=== PATIENT | male | born 1975 | race Caucasian/White ===

== ENCOUNTER 2016-08-03 14:47 | Inpatient (IN) | payer OTHER ==
[~2016-08-03] VITALS: Ht 188 cm; Wt 142.9 kg
[2016-08-03] VITALS (8 sets, daily range): BP systolic 134–145; BP diastolic 60–88
[~2016-08-03 14:47] MED LIST: DEXTROAMP-AMPHE20 MG PO; LASIX40 M1 PO; POTASSIUM CHLO20 ME2 PO; SUBOXONE 8 MG-1 EACH SL; ZOLPIDEM TARTRAT5 M1 PO
--- NOTE | 2016-08-03 15:18 | ED CARDIAC/CP/PALPITATIONS ---
History of Present Illness General Chief Complaint: Chest Pain Stated Complaint: PER , "I THINK HE IS HAVING A HEART ATTACK" Source: patient, family, old records Exam Limitations: intoxication Vital Signs & Intake/Output Vital Signs & Intake/Output Vital Signs Date Time Temp Pulse Resp B/P Pulse O2 O2 Flow FiO2 Ox Delivery Rate 08/03 2328 97.8 100 20 140/80 08/03 2309 97.8 100 20 140/80 94 Room Air 08/03 2113 97.1 107 18 137/60 08/03 2113 97.2 107 18 137/60 94 Room Air Room Air 08/03 2000 97.0 107 18 145/70 08/03 2000 97.0 107 18 145/70 96 Room Air Room Air 08/03 184 97.1 97 18 144/80 08/03 1749 97.0 97 18 138/70 98 Room Air 08/03 1746 97.0 97 18 138/70 08/03 1607 97.0 92 18 134/76 08/03 1458 96.0 103 18 144/73 97 Room Air Allergies Coded Allergies: NO KNOWN ALLERGIES (06/11/16) Reconcile Medications No Known Home Medications Triage Note: PT BROUGHT TO ED BY , PT WITH TEARS IN HIS EYES STATES HE THINKS HE IS HAVING A HEART ATTACK. PT BROUGHT TO EKG [facility]. EKG COMPLETED AND SHOWN TO DR. ZAMBRANO. PT BROUGHT TO ROOM 8. PT ADMITS TO ETOH AND STATES HIS LAST DRINK 2 HOURS AGO. Triage Nurses Notes Reviewed? yes Onset: Abrupt Duration: better Timing: single episode today Quality/Severity: moderate Location: substernal, central Radiation: no radiation HPI: Patient is a 40-year-old male with a past medical history significant for alcoholism who presents to the emergency room saying that the past few weeks he has been significantly drinking all the time in which his last alcohol beverage was prior to arrival which he states he woke up this morning drank vodka all morning and states that he returned from running and an one hour prior to arrival patient at home while at rest had acute onset of diaphoresis and dizziness generalized weakness heart pounding sensation in which his also noted patient to be pale in complexion. Patient denies any chest pain, fevers arm pain and jaw pain leg swelling hemoptysis history of DVT or PE. Patient denies any illicit drug use and does smoke tobacco. Patient's was recently admitted to a facility in [place] in the fall of last year in which he suffered withdrawal alcohol seizures Patient states that currently he has significant improvement of symptoms and just feels generalized weakness and fatigue. Denies any suicidal or Homicidal ideation Patient does request alcohol detoxification treatment (LISA GREGORY) Past History Travel History Traveled to [place] past 21 day No Medical History Any Pertinent Medical History? see below for history Neurological: narcolepsy EENT: NONE Cardiovascular: NONE Respiratory: NONE Gastrointestinal: NONE Hepatic: NONE Renal: NONE Musculoskeletal: NONE Psychiatric: alcohol dependence, adhd Endocrine: NONE Blood Disorders: NONE Cancer(s): NONE PEDICURIST/Reproductive: NONE Surgical History Surgical History: non-contributory, N Psychosocial History Who do you live with Significant Other What is your primary language Palauan Tobacco Use: Current Daily Use Daily Tobacco Use Amount/Type: => 5 Cigarettes daily ETOH Use: alcoholic Illicit Drug Use: denies illicit drug use Family History Hx Contributory? No (LISA GREGORY) Review of Systems Review of Systems Constitutional: Reports: see HPI, diaphoresis. EENTM: Reports: no symptoms. Respiratory: Reports: see HPI. Cardiovascular: Reports: see HPI, palpitations. Denies: chest pain. GI: Reports: no symptoms. Genitourinary: Reports: no symptoms. Musculoskeletal: Reports: no symptoms. Skin: Reports: no symptoms. Neurological/Psychological: Reports: no symptoms. Hematologic/Endocrine: Reports: no symptoms. Immunologic/Allergic: Reports: no symptoms. All Other Systems: Reviewed and Negative (LISA GREGORY) Physical Exam Physical Exam General Appearance: no apparent distress, comfortable Cardiovascular: tachycardia Comments: HEENT: Normal EENT exam, extraocular motion intact, no nystagmus. Pupils equally round and reactive to light and accommodation. Nose is atraumatic. External auditory canal and Tympanic membranes clear. Pharynx normal. No swelling or edema. Neck: Supple, no lymphadenopathy, normal range of motion without pain or tenderness Back: Nontender, no CVA tenderness. Respiratory: Chest nontender. No respiratory distress.breath sounds clear to auscultation bilaterally Abdomen: Soft, nontender nondistended, no appreciable organomegaly. Normal bowel sounds. No ascites Extremity: No edema, no calf tenderness to palpation, normal and equal pulses. Neuro: Alert oriented x3, motor sensory normal, cranial nerves II through XII grossly intact. Skin: No appreciable rash on exposed skin, skin is warm and dry. Psych: Mood and affect is normal, memory and judgment is normal. Core Measures ACS in differential dx? Yes Severe Sepsis Present: No Septic Shock Present: No (JEMIMA HICKMAN,LISA) Progress Differential Diagnosis: AMI, aortic dissection, atrial fibrillation, cholecystitis, CHF/pulm edema, costochondritis, hyperkalemia, hypovolemia, hyperthyroid, hyperventilation, intracranial hemorrhage, musculoskeletal pain, myocarditis, pancreatitis, pericarditis, pneumonia, pneumothorax, PSVT, pulmonary embolism, PUD/GERD, PVCs/PACs, respiratory failure, rib fracture, sepsis, unstable angina, V-fib/V-Tach, WPW syndrome, ELECTROLYTE ABNORMALITY, ALCOHOLISM, PANCREATITIS, Plan of Care: Orders Procedure Date/time Status Regular Diet 08/04 B Active HEPATIC FUNCTION PANEL 08/04 0600 Active BASIC ELECTROLYTES PLUS BUN&CR 08/04 0600 Active TROPONIN LEVEL 08/04 0100 Active EKG 08/04 0100 Active Pathway - chart 08/03 2246 Active House Staff 08/03 2246 Active Patient Data 08/03 2246 Active Code Status 08/03 2247 Active Vital Signs 08/03 2229 Active Teach/Educate 08/03 2229 Active Nutritional Intake, Monitor 08/03 2229 Active Isolation 08/03 2229 Active Intake & Output 08/03 2229 Active Patient Care Conference 08/03 2229 Active Activity/Ambulation 08/03 2229 Active Patient Data 08/03 2014 Active Pathway - chart 08/03 2006 Active Admit to inpatient 08/03 1956 Active Vital Signs 08/03 1956 Active Code Status 08/03 1956 Complete Intake & Output 08/03 1841 Active MAGNESIUM 08/03 1838 Complete URINE DRUGS OF ABUSE 08/03 1533 Complete URINALYSIS 08/03 1533 Complete Telemetry/Pourer Metal 08/03 1530 Active CIWA 08/03 1530 Active Add-on Test (ER Only) 08/03 1520 Active TROPONIN LEVEL 08/03 1511 Complete LIPASE 08/03 1511 Complete COMPREHENSIVE METABOLIC PANEL 08/03 1511 Complete CBC WITHOUT DIFFERENTIAL 08/03 1511 Complete AMYLASE 08/03 1511 Complete EKG 08/03 1448 Active ETHANOL 08/03 1312 Complete Lab Add-on Test 08/03 UNK Active VTE Mechanical Prophylaxis 08/03 UNK Active Seizure Precautions 08/03 UNK Active SOCIAL WORK CONSULT 08/03 UNK Active Current Medications Sig/Teddy Start time Last Medication Dose Stop Time Status Admin Enoxaparin Sodium 40 MG DAILY 08/04 1000 AC (Lovenox) Folic Acid 1 MG DAILY 08/04 1000 AC (Folic Acid) Multivitamins 1 TAB DAILY 08/04 1000 AC (Theragran Vitamins) Thiamine HCl 100 MG DAILY 08/04 1000 AC (Vitamin B1) Lorazepam 1.5 MG Q6H 08/04 0000 CAN (Ativan) 08/04 1201 Lorazepam 2 MG Q6 08/03 2359 AC (Ativan) Acetaminophen 650 MG Q8P PRN 08/03 2300 AC (Tylenol) Laboratory Tests 08/03/168: Serum Alcohol 224.0 08/03/161837: Anion Gap 20 H, Estimated GFR > 60, BUN/Creatinine Ratio 14.4, Glucose 93, Calcium 8.4, Magnesium 1.7, Total Bilirubin 1.1, AST 149 H, ALT 230 H, Alkaline Phosphatase 76, Troponin I 0.01, Total Protein 6.9, Albumin 4.1, Globulin 2.8, Albumin/Globulin Ratio 1.5, Amylase 53, Lipase 98, Urine Opiates Screen < 100.00, Methadone Screen < 40, Barbiturate Screen < 60, Ur Phencyclidine Scrn < 6.00, Amphetamines Screen < 100, U Benzodiazepines Scrn < 85, Urine Cocaine Screen < 50, Urine Cannabis Screen 13.30, Urine Color YEL, Urine Clarity CLEAR, Urine pH 6.0, Ur Specific [place] >= 1.030, Urine Protein NEG, Urine Ketones >=80, Urine Nitrite NEG, Urine Bilirubin NEG, Urine Urobilinogen 0.2, Ur Leukocyte Esterase NEG, Ur Microscopic EXAM NOT REQUIRED, Urine Hemoglobin NEG, Urine Glucose NEG 08/03/16 1312: CBC w Diff NO MAN DIFF REQ, RBC 5.31, MCV 92.0, MCH 31.5 H, RDW 15.7 H, MPV 8.4, Gran % 57.4, Lymphocytes % 35.2, Monocytes % 6.0, Eosinophils % 1.0, Basophils % 0.4, Absolute Granulocytes 3.8, Absolute Lymphocytes 2.3, Absolute Monocytes 0.4, Absolute Eosinophils 0.1, Absolute Basophils 0, PUBS MCHC 34.3 Patient currently is in no apparent distress and denies any chest pain and states that he has mild nausea and weakness and fatigue. Patient had unremarkable EKG and initial blood work for cardiac involvement of his presenting complaints. Nursing staff does note that patient scored a CIWA OF 10 Patient was evaluated on multiple occasions noted to be no apparent distress. Nursing does note to me that patient's blood work was hemolyzed multiple occasions however after approximate 4-5 hours it was noted the patient had ETOH level of 224 and patient scored a 10 on CIWA in which due to hospital protocol in which she had a seizure within the last year from alcohol withdrawal that he meets criteria to be admitted for concerns of alcohol withdrawal and treatment. I discussed disposition plan with patient and family who agree and had no questions (LISA GREGORY) Diagnostic Imaging: Viewed by Me: Radiology Read. CXR Impression: no acute abnormality Initial ED EKG: SINUS TACHYCARDIA 101 BPM SINUS RHYTHM Prior EKG: unchanged Comments: PATIENT: CHLOE MCFADDEN PRESENT AGE: 40 PATIENT ACCOUNT NO: [id number] : 74 LOCATION: [facility] ORDERING PHYSICIAN: LISA HICKMAN SERVICE DATE: 08/03/16 EXAM TYPE: RAD - XRY-PORTABLE CHEST XRAY EXAMINATION: XR PORTABLE CHEST CLINICAL INFORMATION: Chest pain. COMPARISON: X-ray dated 06/11/2016 and 02/14/2013. TECHNIQUE: Portable AP semierect view of the chest was obtained. FINDINGS: The cardiomediastinal silhouette is within normal limits in size. Lungs bilaterally are symmetrically expanded and clear. The CP angles are not fully included. No effusion or pneumothorax is seen. Bony structures are unremarkable. IMPRESSION: Unchanged appearance of the chest with no acute focal process seen. (LISA GREGORY) Departure Departure Disposition: STILL A PATIENT Condition: Guarded Clinical Impression Primary Impression: Alcohol dependence Referrals: BONNIE CARRILLO,SONNY Heredia (PCP/Family) Departure Forms: Customer Survey General Discharge Information Prescriptions: Current Visit Scripts No Known Home Medications Admission Note Spoke With: LEXY SINGH MD Documentation of Exam: Documentation of any treatments & extenuating circumstances including Concerns Regarding Discharge (functional status, medication knowledge or non-compliance, living conditions, etc.) that warrant an admission rather than observation: [ Discussed patient with Dr. SINGH who agrees with general medicine admission for concerns of alcohol dependency and alcohol withdrawal symptoms. Patient requires IV Ativan tapering repeat labs and counseling services for his dependency. Outpatient treatment at this time would be medically harmful] (LISA GREGORY) PA/FOREIGN AGENT Co-Sign Statement Statement: ED Attending supervision documentation- [] I saw and evaluated the patient. I have also reviewed all the pertinent lab results and diagnostic results. I agree with the findings and the plan of care as documented in the PA's/FOREIGN AGENT's documentation. [X] I have reviewed the ED Record and agree with the PA's/FOREIGN AGENT's documentation. [] Additions or exceptions (if any) to the PAs/FOREIGN AGENT's note and plan are summarized below: [] (MARNIE CARRILLO,NADINE) Critical Care Note Critical Care Note Critical Care Time: 30-74 min (LISA GREGORY)
[2016-08-03 15:19] LABS: ABSOLUTE BASOPHIL COUNT 0 /CUMM (0.0-0.2); ABSOLUTE EOSINOPHIL COUNT 0.1 /CUMM (0.0-0.7); ABSOLUTE GRANULOCYTE CT 3.8 /CUMM (1.4-6.5); ABSOLUTE LYMPH COUNT 2.3 /CUMM (1.2-3.4); ABSOLUTE MONOCYTE COUNT 0.4 /CUMM (0.10-0.60); BASOPHIL % 0.4 % (0.0-2.0); GRANULOCYTE % 57.4 % (42.2-75.2); HEMATOCRIT 48.8 % (42-52); MEAN CORPUSCULAR HGB 31.5 PG (27.0-31.0); MEAN CORPUSCULAR HGB CONC 34.3 G/DL (33.0-37.0); MEAN PLATELET VOLUME 8.4 FL (7.4-10.4); PLATELET COUNT 231 /CUMM (130-400); RBC DISTRIBUTION WIDTH 15.7 % (11.5-14.5); RED BLOOD CELL CT 5.31 /CUMM (4.70-6.10); WHITE BLOOD CELL COUNT 6.6 /CUMM (4.8-10.8)
--- NOTE | 2016-08-03 16:04 | RADIOLOGY REPORT ---
EXAMINATION: XR PORTABLE CHEST CLINICAL INFORMATION: Chest pain. COMPARISON: X-ray dated 06/11/2016 and 02/14/2013. TECHNIQUE: Portable AP semierect view of the chest was obtained. FINDINGS: The cardiomediastinal silhouette is within normal limits in size. Lungs bilaterally are symmetrically expanded and clear. The CP angles are not fully included. No effusion or pneumothorax is seen. Bony structures are unremarkable. IMPRESSION: Unchanged appearance of the chest with no acute focal process seen.
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
--- NOTE | 2016-08-03 23:15 | Admission Certification ---
Admission Certification Certification Statement - As attending physician, I certify that at the time of - admission, based on clinical presentation, severity of - symptoms, need for further diagnostic testing and - therapeutic interventions, and risk of adverse outcomes - without in-hospital treatment, in my clinical assessment, - this patient requires an acute hospital stay for a minimum - of two nights or longer. I have also considered psychsocial - factors such as support system, advanced age, financial - issues, cognitive issues, and failed out-patient treatments, - past re-admission history, safety of patient, and lack of - compliance as applicable. Specific rationale supporting this admission is: Alcohol withdrawal with h/o alcohol withdrawal seizure.
[2016-08-04] VITALS (12 sets, daily range): BP systolic 138–170; BP diastolic 80–110
--- NOTE | 2016-08-04 07:39 | PN- Housestaff ---
SHANTAL CARRILLO,OLY 08/04/16 0738: Subjective Follow-up For: ETOH withdrawal Complaints: nausea/abdominal discomfort Subjective: He c/o nausea and abdominal discomfort. Last drink was 1 DA. His hands were shaking a lot last night, but today morning he got better. He didn't have hx of HTN. Not on any home medication. Review of Systems Constitutional: Reports: malaise. Denies: chills, fever, weakness. EENTM: Reports: no symptoms. Cardiovascular: Denies: chest pain, orthopena, palpitations, peripheral edema, syncope. Respiratory: Denies: cough, short of breath, sputum production. Gastrointestinal: Reports: abdominal pain, nausea. Denies: diarrhea, vomiting. Genitourinary: Reports: no symptoms. Musculoskeletal: Reports: no symptoms. Skin: Reports: no symptoms. Neurological/Psychological: Reports: anxiety. Hematologic/Endocrine: Reports: no symptoms. Objective Last 24 Hrs of Vital Signs/I&O Vital Signs Date Time Temp Pulse Resp B/P Pulse O2 O2 Flow FiO2 Ox Delivery Rate 08/04 0800 98.8 83 18 168/110 08/04 0657 98.7 105 18 144/106 94 Room Air 08/04 0550 98.7 94 20 144/106 08/04 0000 97.8 100 20 140/80 08/03 2329 97.8 100 20 140/80 08/03 2309 97.8 100 20 140/80 94 Room Air 08/034 97.1 107 18 137/60 08/03 2114 97.2 107 18 137/60 94 Room Air Room Air 08/03 2000 97.0 107 18 145/70 08/03 2000 97.0 107 18 145/70 96 Room Air Room Air 08/03 1845 97.1 97 18 144/80 08/03 1749 97.0 97 18 138/70 98 Room Air 08/03 1746 97.0 97 18 138/70 08/03 1607 97.0 92 18 134/76 08/03 1458 96.0 103 18 144/73 97 Room Air Intake & Output 08/04 1600 08/04 0800 08/04 0000 Intake Total 240 1150 Output Total Balance 240 1150 Intake, IV 1000 Intake, Oral 240 150 Number 0 Bowel Movements Patient 315 lb Weight Physical Exam General Appearance: Alert, Oriented X3, Mild Distress Skin: No Rashes, No Breakdown, No Significant Lesion HEENT: Atraumatic, PERRLA, EOMI, Mucous Membr. moist/pink Neck: Supple, No JVD, No LAD Lymphatic: Cervical nl Cardiovascular: Normal S1, Normal S2, No Murmurs, tachycardic Lungs: Clear to Auscultation, Normal Air Movement Abdomen: Normal Bowel Sounds, Soft, No Tenderness Neurological: Normal Speech, Strength at 5/5 X4 Ext, Normal Tone, Sensation Intact, fine bilateral hand tremors Extremities: No Edema, Normal Pulses, No Tenderness/Swelling Vascular: Normal Pulses, Pulses Symmetrical Current Medications: Current Medications Sig/Teddy Start time Last Medication Dose Route Stop Time Status Admin Acetaminophen 650 MG Q8P PRN 08/03 2300 AC PO Benzonatate 100 MG TID 08/04 0521 AC 08/04 PO 0545 Clonidine 0.1 MG BID 08/04 1000 AC PO Enoxaparin Sodium 40 MG DAILY 08/04 1000 AC SC Folic Acid 1 MG DAILY 08/04 1000 AC PO Lorazepam 1.5 MG Q6H 08/04 0000 CAN IV 08/04 1201 Lorazepam 2 MG Q6 08/03 2359 AC 08/04 PO 0517 Lorazepam 0 Q1P PRN 08/03 2300 AC 08/04 IV 0813 Lorazepam 2 MG ONCE 08/03 2014 DC IV 08/03 2015 Lorazepam 0 .STK-MED ONE 08/03 2012 DC .ROUTE Lorazepam 2 MG Q6 08/03 2006 DC 08/03 IV 2019 Magnesium Oxide 400 MG ONE ONE 08/04 0030 DC 08/04 PO 08/04 0031 0215 Multivitamins 1 TAB DAILY 08/04 1000 AC PO Nicotine 14 MG DAILY 08/04 1000 AC TOP Ondansetron HCl 4 MG Q6P PRN 08/04 0845 AC IV Ondansetron HCl 4 MG ONCE ONE 08/03 2130 DC 08/03 IV 08/03 2131 2124 Ondansetron HCl 0 .STK-MED ONE 08/03 2016 DC .ROUTE Ondansetron HCl 4 MG ONCE ONE 08/03 1530 DC IV 08/03 1531 Sodium Chloride 1,000 ML BOLUS ONE 08/03 1530 DC 08/03 IV 08/03 1629 1629 Thiamine HCl 100 MG DAILY 08/04 1000 AC PO Last 24 Hrs of Lab/Devendra Results Last 24 Hrs of Labs/Mics: Laboratory Tests 08/04/16 0630: Anion Gap 9, Estimated GFR > 60, BUN/Creatinine Ratio 15.6, Magnesium 2.0, Total Bilirubin 1.6 H, Direct Bilirubin 0.4, AST 107 H, ALT 187 H, Alkaline Phosphatase 70, Total Protein 6.5, Albumin 3.8, Hepatitis A IgM Ab Pending, Hep Bs Antigen Pending, Hep B Core IgM Ab Conf Pending, Hepatitis C Antibody Pending 08/04/16 0100: Troponin I < 0.01 08/03/16 1838: Serum Alcohol 224.0 08/03/161837: Anion Gap 20 H, Estimated GFR > 60, BUN/Creatinine Ratio 14.4, Glucose 93, Calcium 8.4, Magnesium 1.7, Total Bilirubin 1.1, AST 149 H, ALT 230 H, Alkaline Phosphatase 76, Troponin I 0.01, Total Protein 6.9, Albumin 4.1, Globulin 2.8, Albumin/Globulin Ratio 1.5, Amylase 53, Lipase 98, Urine Opiates Screen < 100.00, Methadone Screen < 40, Barbiturate Screen < 60, Ur Phencyclidine Scrn < 6.00, Amphetamines Screen < 100, U Benzodiazepines Scrn < 85, Urine Cocaine Screen < 50, Urine Cannabis Screen 13.30, Urine Color YEL, Urine Clarity CLEAR, Urine pH 6.0, Ur Specific [place] >= 1.030, Urine Protein NEG, Urine Ketones >=80, Urine Nitrite NEG, Urine Bilirubin NEG, Urine Urobilinogen 0.2, Ur Leukocyte Esterase NEG, Ur Microscopic EXAM NOT REQUIRED, Urine Hemoglobin NEG, Urine Glucose NEG 08/03/16 1312: CBC w Diff NO MAN DIFF REQ, RBC 5.31, MCV 92.0, MCH 31.5 H, RDW 15.7 H, MPV 8.4, Gran % 57.4, Lymphocytes % 35.2, Monocytes % 6.0, Eosinophils % 1.0, Basophils % 0.4, Absolute Granulocytes 3.8, Absolute Lymphocytes 2.3, Absolute Monocytes 0.4, Absolute Eosinophils 0.1, Absolute Basophils 0, PUBS MCHC 34.3 Orders CIWA Score (last 24 hrs): 5-8-6-2-10-14-16 Lines/Diet/Fluids Lines: peripheral lines Assessment/Plan Assessment: 40 yo obese male with pmh of alcohol dependence, previous alcohol withdrawal seizures while he was in [facility] in [place] (Mar 2016), anxiety, narcolepsy with current smoking p/w an episode of sudden onset diaphoresis, palpitations and dyspnea with chest pain. No evidence of seizure like activity. He drinks 1/2 pint of vodka daily, last drink was 1DA, drinking since he was 12, been through multiple detoxes in the past. Denies SI or HI. Pt is admitted in for alcohol withdrawal. 1. Dyspnea/palpitations: 2 sets of troponin/ekgs were negative. He denies any ongoing chest pain. Most likely from alcohol withdrawal/anxiety. Pt is still tachycardic. Manage symptoms with po ativan ATC/IV ativan prn. 2. Alcohol withdrawal / HTN: He had 1 episode of alcohol withdrawal seizure while he was in [facility] in [place] (Mar 2016). After that no extra episode of seizure. CIWA score has been increasing from 10, 14, then 16 this morning. Also BP was elevated with tachycardia. Continue IV ativan per CIWA, PO ativan 2 mg Q6, multivitamin, folate/thiamine, IV zofran for nausea. He started on po clonidine 0.1mg bid for HTN in the setting of alchol withdrawal. will follow up Social work consult. 3. Smoking cessation: He smokes usually when he drinks. He denies heavy cigarette smoking, continue counseling, nicotine patch. 5. Narcolepsy: He has been following Dr. Sirena Wang in [place] for narcolepsy. Will get medical record. 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 Patient was on adderall which he stopped taking. He denies opioid abuse, and he states he was on suboxone for narcolepsy. He used marijuana for insomina, last use 2WA. 6. Transaminitis: AST/ALT improving. Hepatitis panel negative. Trend LFT/lipid panel in AM. DVT ppx Lovenox. Full code. Problem List: 1. Alcohol withdrawal syndrome Pain Ratin Pain Location: abdominal discomfort Pain Goal: Pain 4 or less Pain Plan: tyrenol prn Tomorrow's Labs & Rationales: LFT, lipid panel: transaminitis DVT/Prophylaxis: pharmacological Discharge Plan Stable for Discharge? No HORTENCIA BELL MD 08/04/16 0227: Attending MD Review Statement Attending Statement Attending MD Statement: examined this patient, discuss w/resident/PA/CLOTH FINISHING RANGE TENDER, agreed w/resident/PA/CLOTH FINISHING RANGE TENDER, reviewed EMR data (avail), discussed with nursing, amended to note Attending Assessment/Plan: The patient was seen and discussed with house staff. Agree with plan of care as outlined.
[2016-08-05] VITALS (9 sets, daily range): BP systolic 120–140; BP diastolic 60–90
--- NOTE | 2016-08-05 07:42 | PN- Housestaff ---
SHANTAL CARRILLO,OLY 08/05/16 0737: Subjective Follow-up For: ETOH withdrawal Complaints: pt was anxious/depressed today morning Subjective: Pt was tearful this morning c/o depression. He denies SI / HI. He was not interested in seeing a psychiatrist in the hospital, but he wants to follow up with Dr. Wang. He denies any nausea/vomiting. Review of Systems Constitutional: Denies: chills, fever, weakness. EENTM: Reports: no symptoms. Cardiovascular: Denies: chest pain, palpitations, peripheral edema, syncope. Respiratory: Denies: cough, short of breath, sputum production, wheezing. Gastrointestinal: Denies: abdominal pain, diarrhea, nausea, vomiting. Genitourinary: Reports: no symptoms. Musculoskeletal: Reports: no symptoms. Skin: Reports: no symptoms. Neurological/Psychological: Reports: anxiety, depressed. Hematologic/Endocrine: Reports: no symptoms. Objective Last 24 Hrs of Vital Signs/I&O Vital Signs Date Time Temp Pulse Resp B/P Pulse O2 O2 Flow FiO2 Ox Delivery Rate 08/05 0706 98.6 70 19 132/70 95 Room Air 08/05 0227 98.6 70 20 126/60 93 Room Air 08/05 0200 98.6 70 20 126/60 08/05 0000 95 Room Air 08/04 2227 98.9 85 18 140/82 95 Room Air 08/04 2200 98.9 85 18 140/82 95 Room Air 08/04 2124 98.9 85 18 140/82 08/04 1400 99.0 81 20 138/90 08/04 1351 99.0 81 20 138/90 96 Room Air 08/04 1200 98.1 102 18 140/86 08/04 1057 158/82 08/04 1035 98.9 105 18 158/84 97 Room Air 08/04 1000 98.9 105 18 158/84 08/04 0900 98.0 100 18 170/100 08/04 0800 98.8 83 18 168/110 Intake & Output 08/05 0800 08/05 0000 08/04 1600 Intake Total 480 750 Output Total Balance 480 750 Intake, Oral 480 750 Number 1 Bowel Movements Physical Exam General Appearance: Alert, Oriented X3, Cooperative, tearful, loos anxious/ depressed Skin: No Rashes, No Breakdown, No Significant Lesion HEENT: Atraumatic, PERRLA, EOMI, Mucous Membr. moist/pink Neck: Supple, No JVD, No LAD Lymphatic: Cervical nl Cardiovascular: Regular Rate, Normal S1, Normal S2, No Murmurs Lungs: Clear to Auscultation, Normal Air Movement Abdomen: Normal Bowel Sounds, Soft, No Tenderness Neurological: Normal Speech, Strength at 5/5 X4 Ext, Normal Tone, Sensation Intact, Cranial Nerves 3-12 NL Extremities: No Cyanosis, No Edema, Normal Pulses, No Tenderness/Swelling Vascular: Normal Pulses, Pulses Symmetrical Current Medications: Current Medications Sig/Teddy Start time Last Medication Dose Route Stop Time Status Admin Acetaminophen 650 MG Q8P PRN 08/03 2300 AC 08/04 PO 0921 Benzonatate 100 MG TID 08/04 0521 AC 08/05 PO 0942 Bupropion HCl 100 MG BID 08/05 1000 AC 08/05 PO 1110 Clonidine 0.1 MG BID 08/04 1000 AC 08/05 PO 0942 Enoxaparin Sodium 40 MG DAILY 08/04 1000 AC 08/05 SC 0942 Folic Acid 1 MG DAILY 08/04 1000 AC 08/05 PO 0942 Influenza Virus 0.5 ML ONCE ONE 08/05 1245 DC 08/05 Vaccine IM 08/05 1246 1330 Lorazepam 2 MG Q6 08/03 2359 AC 08/05 PO 1110 Lorazepam 0 Q1P PRN 08/03 2300 AC 08/05 IV 1430 Multivitamins 1 TAB DAILY 08/04 1000 AC 08/05 PO 0942 Nicotine 14 MG DAILY 08/04 1000 DC TOP Ondansetron HCl 4 MG Q6P PRN 08/04 0845 AC IV Thiamine HCl 100 MG DAILY 08/04 1000 AC 08/05 PO 0942 Last 24 Hrs of Lab/Devendra Results Last 24 Hrs of Labs/Mics: Laboratory Tests 08/05/16 0700: Anion Gap 9, Estimated GFR > 60, BUN/Creatinine Ratio 12.5, Total Bilirubin 1.9 H, Direct Bilirubin 0.3, AST 152 H, ALT 180 H, Alkaline Phosphatase 66, Total Protein 6.2 L, Albumin 3.6 Orders CIWA Score (last 24 hrs): 10-2-0-0-0 Lines/Diet/Fluids Lines: peripheral lines Assessment/Plan Assessment: 40 yo obese male with pmh of alcohol dependence, previous alcohol withdrawal seizures while he was in [facility] in [place] (Mar 2016), anxiety, narcolepsy with current smoking p/w an episode of sudden onset diaphoresis, palpitations and dyspnea with chest pain. No evidence of seizure like activity. He drinks 1/2 pint of vodka daily, last drink was 1DA, drinking since he was 12, been through multiple detoxes in the past. Denies SI or HI. Pt is admitted in for alcohol withdrawal. 1. Dyspnea/palpitations: 2 sets of troponin/ekgs were negative. He denies any ongoing chest pain. Most likely from alcohol withdrawal/anxiety. Tachycardia resolved. Manage symptoms with po ativan ATC/IV ativan prn. 2. Alcohol withdrawal / HTN: He had 1 episode of alcohol withdrawal seizure while he was in [facility] in [place] (Mar 2016). After that no extra episode of seizure. CIWA score has been stable, 10-2-0-0-0. Pt is on po 2mg q6 ( 8mg in 24 hrs) with IV ativan (5mg in 24 hrs) total 13 mg/24 hrs. Hypertension/ tachycardia resolved. Continue IV ativan per CIWA, PO ativan 2 mg Q6, multivitamin, folate/thiamine, IV zofran for nausea, po clonidine 0.1mg bid for HTN in the setting of alchol withdrawal. 3. Smoking cessation: He smokes usually when he drinks. He denies heavy cigarette smoking, continue counseling, he declined nicotine patch. 5. Narcolepsy: He has been following Dr. Sirena Wang in [place] for narcolepsy. Will get medical record. 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 Patient was on adderall which he stopped taking. He denies opioid abuse, and he states he was on suboxone for narcolepsy. He used marijuana for insomina, last use 2WA. 6. Transaminitis: AST/ALT still elevated. Hepatitis panel negative. Asymptomatic. Will follow LFT before discharge 7. Depression: He has clinical depression, wellbutrin 100mg bid was initiated today. Outpt follow up with Dr. Wang. DVT ppx Lovenox. Full code. Problem List: 1. Alcohol withdrawal syndrome Pain Ratin Pain Location: NA Pain Goal: Pain 4 or less Pain Plan: tyrenol prn Tomorrow's Labs & Rationales: NA, LFT before discharge DVT/Prophylaxis: pharmacological Discharge Plan Stable for Discharge? No HORTENCIA BELL MD 08/05/16 1417: Attending MD Review Statement Attending Statement Attending MD Statement: examined this patient, discuss w/resident/PA/GENERAL INTERNAL MEDICINE PHYSICIAN, agreed w/resident/PA/GENERAL INTERNAL MEDICINE PHYSICIAN, reviewed EMR data (avail), discussed with nursing, reviewed images Attending Assessment/Plan: The patient was seen and discussed with house staff. Agree with the plan of care as outlined.
--- NOTE | 2016-08-05 21:40 | Patient Discharge Instructions ---
Discharge Instructions General Discharge Information You were seen/treated for: ETOH withdrawl Special Instructions: 1. please followup with your regular doctor after discharge Diet Continue normal diet: Yes Activity Full Activity/No Limits: Yes Acute Coronary Syndrome Inclusion Criteria At DC or during hospital stay patient has or had the following: ACS DIAGNOSIS No Discharge Core Measures Meds if any: Prescribed or Continued at Discharge Meds if any: NOT Prescribed or Continued at Discharge Congestive Heart Failure Inclusion Criteria At DC or during hospital stay patient has or had the following: CHF DIAGNOSIS No Discharge Core Measures Meds if any: Prescribed or Continued at Discharge Meds if any: NOT Prescribed or Continued at Discharge Cerebrovascular accident Inclusion Criteria At DC or during hospital stay patient has or had the following: CVA/TIA Diagnosis No Discharge Core Measures Meds if any: Prescribed or Continued at Discharge Meds if any: NOT Prescribed or Continued at Discharge Venous thromboembolism Inclusion Criteria VTE Diagnosis No VTE Type NONE VTE Confirmed by (Test) NONE Discharge Core Measures - Per Current guidelines, there needs to be overlap - treatment for the first 5 days of Warfarin therapy. - If discharged on Warfarin prior to 5 days of - overlap therapy, the patient will need to be - assessed for post discharge needs including - *Post discharge parental anticoagulation - *Warfarin and/or parental anticoagulation education - *Follow up date to check INR post discharge At least 5 days overlap therapy as Inpatient No Meds if any: Prescribed or Continued at Discharge Note: Overlap Therapy is Warfarin and Anticoagulant Meds if any: NOT Prescribed or Continued at Discharge
--- NOTE | 2016-08-05 21:41 | Event Note ---
Event Note Event Note: I was told by the nurse, that patient want to leave AMA. I went to talk to the patient, he was very worried about his .We told him that he needs to finish alcohol detox and his CIWA scores are running high. He can have seizures, aspiration,difficulty in breathing, even cardiac arrest and end up in readmission. Patient was aware of all consequences. At the time of leaving AMA, he does not have any suicidal or homicidal ideation. I updated to Dr. Nielsen, she came and tried to make understand the patient about the pros and cons of leaving AMA including seizures and cardiac arrest. Despite all efforts patient wanted to leave AMA. He signed AMA form. Patient was discharged without any medication, but later we find out that he was started on Wellbutrin and clonidine in hospital.We send the prescription to pharmacy for both welbutrin and clonidine.Resident talked to the over phone, updated about patient that he is leaving AMA and we send prescriptions for Wellbutrin and clonidine to pharmacy. She told that she will pick it up from the pharmacy tomorrow.Attending Aware.
--- NOTE | 2016-08-14 16:29 | Discharge Summary ---
Visit Information Visit Dates Admission Date: 08/03/16 Discharge Date: 08/05/16 Hospital Course Course Attending Physician: HORTENCIA BELL MD Primary Care Physician: BONNIE CARRILLO,SONNY Heredia Hospital Course: 40 yo obese male with pmh of alcohol dependence, previous alcohol withdrawal seizures while he was in [facility] in [place] (Mar 2016), anxiety, narcolepsy with current smoking presented with an episode of sudden onset diaphoresis, palpitations and dyspnea with chest pain. No evidence of seizure like activity. He drinks 1/2 pint of vodka daily. Last drink was 1DA. He has been drinking since he was age of 12 and he got multiple detoxes in the past. He denied suicidal or homocidal idea. Patient was admitted in for alcohol withdrawal. 1. Dyspnea/palpitations: 2 sets of troponin/ekgs were negative. He denies any ongoing chest pain. Most likely from alcohol withdrawal/anxiety. Tachycardia was resolved later. We continued managing symptoms with po ativan ATC/IV ativan prn. 2. Alcohol withdrawal : Patient was given po ativan 2mg q6 around the clock and IV ativan per CIWA protocol. CIWA score has been stable during admission. Hypertension and tachycardia were resolved. He continued multivitamin, folate/ thiamine, IV zofran for nausea, po clonidine 0.1mg bid for HTN in the setting of alchol withdrawal. However, before finishing the course of ativan taper, patient discharged against medical advice on 08/05. He got explanation from night float doctors about risk of seizures, aspiration, difficulty in breathing, cardiac arrest and readmission. Please follow up with Dr. Wang, psychiatry as outpatient. 3. Current smoker: He smokes usually when he drinks. He denies heavy cigarette smoking. Smoking cessation counseling was given, but he declined nicotine patch. 5. Narcolepsy: He has been following Dr. Sirena Wang in [place] for narcolepsy. Will get medical record. 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 Patient was on adderall which he stopped taking. He denies opioid abuse, and he states he was on suboxone for narcolepsy. He used marijuana for insomina, last use 2WA. 6. Transaminitis: AST/ALT were elevated 152/180. Atypical pattern for alcoholic hepatitis (AST < ALT). Hepatitis A/B/C panel was negative. Patient was asymptomatic. Please follow up LFT with a primary doctor. 7. Depression: He has clinical depression with tearfulness. PO wellbutrin 100mg bid was initiated. However, as patient left AMA, po wellbutrin was not given as discharge medication per [facility] recommendation. Please follow up with Dr. Wang as outpt. DVT ppx Lovenox. Full code. Allergies: Coded Allergies: NO KNOWN ALLERGIES (06/11/16) Disposition Summary Disposition Principal Diagnosis: Alcohol withdrawal syndrome Additional Diagnosis: Narcolepsy Depression Transaminitis Current smoker Discharge Disposition: left against medical adv Discharge Instructions General Discharge Information Code Status: Full Code Patient's Diet: Heart healthy diet Patient's Activity: Increase as tolerated Follow-Up Instructions/Appts: Please follow up with primary doctor within 1 week after discharge Please follow up with Dr. Wang for psychiatric disorders. Medications at Discharge Discharge Medications: Start taking the following new medications: Bupropion HCl (Bupropion HCl) 100 MG TABLET 1 Tablet ORAL TWICE DAILY Qty = 60 No Refills Clonidine HCl (Clonidine HCl) 0.1 MG TABLET 1 Tablet ORAL TWICE DAILY Qty = 60 No Refills Copies To: HORTENCIA BELL MD; BONNIE CARRILLO,SONNY Heredia; SIDNEY CARRILLO,SIRENA BAGLEY Attending MD Review Statement Documenting Attending: HORTENCIA BELL MD Other Findings: The patient was seen and agree with the plan of care upon discharge.
== END 2016-08-05 21:45 | disposition left against medical advice (07) | DRG 894 ==
LOC: ERH 14:47 → ERHI 19:56 → 2NA 19:56
PROVIDERS: Internal Medicine; Physician Assistant; ADMIT Student in an Organized Health Care Education/Training Program
DX: F10.239 Alcohol dependence with withdrawal, unspecified (principal); F32.9 Major depressive disorder, single episode, unspecified; Y90.7 Blood alcohol level of 200-239 mg/100 ml; F17.210 Nicotine dependence, cigarettes, uncomplicated; G47.419 Narcolepsy without cataplexy
CPT/HCPCS: 2NASP; 36415; 80307; 81003; 82436; 93005; 93010; 96374; G0480; J1650; J2405; J3490; Q2036

== ENCOUNTER 2016-08-18 15:38 | Inpatient (IN) | payer OTHER ==
[~2016-08-18] VITALS: Ht 188 cm; Wt 140.6 kg
--- NOTE | 2016-08-18 15:45 | NUR ---
PT BIBA FROM HOME FOR ETOH USE. PT REPORTS DRINKING 1/2 GALLON OF VODKA FROM LAST NIGHT UNTIL THIS AFTERNOON. PT REPORTS THAT HE HAD A SEIZURE A FEW MONTHS AGO WHEN HE WAS AT A 45 DAY REHAB IN [place]. PT REPORTS HE WAS RECENTLY DIAGNOSED WITH DIABETES. PT DENIES SI/HI OR ANY OTHER DRUGS.
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
--- NOTE | 2016-08-18 16:29 | NUR ---
LABS DRAWN AND SENT
[2016-08-18 16:30] VITALS: BP 118/58
[2016-08-18 16:46] LABS: ABSOLUTE BASOPHIL COUNT 0 /CUMM (0.0-0.2); ABSOLUTE EOSINOPHIL COUNT 0 /CUMM (0.0-0.7); ABSOLUTE GRANULOCYTE CT 5.5 /CUMM (1.4-6.5); ABSOLUTE LYMPH COUNT 1.2 /CUMM (1.2-3.4); ABSOLUTE MONOCYTE COUNT 0.2 /CUMM (0.10-0.60); BASOPHIL % 0.4 % (0.0-2.0); EOSINOPHIL % 0.6 % (0-5); GRANULOCYTE % 78.3 % (42.2-75.2); HEMATOCRIT 53.5 % (42-52); MEAN CORPUSCULAR HGB 32.1 PG (27.0-31.0); MEAN CORPUSCULAR HGB CONC 34.2 G/DL (33.0-37.0); MEAN CORPUSCULAR VOLUME 93.9 FL (80.0-94.0); MEAN PLATELET VOLUME 8.8 FL (7.4-10.4); PLATELET COUNT 234 /CUMM (130-400); RBC DISTRIBUTION WIDTH 15.9 % (11.5-14.5); RED BLOOD CELL CT 5.71 /CUMM (4.70-6.10); WHITE BLOOD CELL COUNT 7.1 /CUMM (4.8-10.8)
--- NOTE | 2016-08-18 17:10 | NUR ---
RN PASQUALE AT BEDSIDE TO START IV. PT'S BSG = 67. GAVE PT ORANGE JUICE X4.
--- NOTE | 2016-08-18 18:15 | NUR ---
PT ASLEEP AT THIS TIME. RESPIRATIONS EQUAL AND UNLABORED.
--- NOTE | 2016-08-18 19:06 | NUR ---
PT AWAKE FOR VITALS, PT STATES HE IS HUNGRY, BUT ALSO REPORTS DIZZINESS. PT IS CALM AND COOPERATIVE.
[2016-08-18 19:12] VITALS: BP 134/62
[2016-08-18 20:29] VITALS: BP 180/88
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
--- NOTE | 2016-08-18 21:01 | NUR ---
PT MEDICATED WITH ATIVAN 2MG PO.
--- NOTE | 2016-08-18 21:15 | NUR ---
PT AMBULATORY TO RESTROOM WITH STEADY GAIT.
--- NOTE | 2016-08-18 21:21 | NUR ---
URINE TRIO SENT TO LAB
--- NOTE | 2016-08-18 22:15 | NUR ---
PT PROVIDED WITH BOX LUNCH
--- NOTE | 2016-08-18 22:27 | NUR ---
PT'S AT BEDSIDE
[2016-08-18 22:30] VITALS: BP 151/72
--- NOTE | 2016-08-18 22:56 | NUR ---
THIS RN ASSUMED CARE OF PT PER RN ZUHAIR, PT RESTING IN RM WITH RR.
--- NOTE | 2016-08-18 23:41 | NUR ---
PT MEDICATED WITH 2MG ATIVAN IV PER EMAR FOR CIWA SCORE OF 14.
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
[2016-08-19] VITALS (13 sets, daily range): BP systolic 140–168; BP diastolic 60–120
--- NOTE | 2016-08-19 00:30 | NUR ---
HOUSE STAFF IN FOR EVAL
--- NOTE | 2016-08-19 00:56 | NUR ---
REPORT GIVEN TO SUNDEEP ROSA.
[2016-08-19] MEDS ORDERED: CLONIDINE HCL0.1 MG PO (01:17)
[2016-08-19] MEDS ORDERED: WELLBUTRIN SR100 M2 PO (01:18)
--- NOTE | 2016-08-19 02:00 | NUR ---
VSS, 0/10 PAIN REPORTED. A&Ox3, INDEPENDENT. ORIENTED TO ROOM, CALL ZAMBRANO IN REACH. AT THE BEDSIDE.
--- NOTE | 2016-08-19 02:02 | Admission Certification ---
Admission Certification Certification Statement - As attending physician, I certify that at the time of - admission, based on clinical presentation, severity of - symptoms, need for further diagnostic testing and - therapeutic interventions, and risk of adverse outcomes - without in-hospital treatment, in my clinical assessment, - this patient requires an acute hospital stay for a minimum - of two nights or longer. I have also considered psychsocial - factors such as support system, advanced age, financial - issues, cognitive issues, and failed out-patient treatments, - past re-admission history, safety of patient, and lack of - compliance as applicable. Specific rationale supporting this admission is: Alcohol detox.
--- NOTE | 2016-08-19 06:35 | PN- Housestaff ---
ALEJANDRA CARRILLO,[facility] 08/19/16 0634: Subjective Follow-up For: ETOH Withdrawal Subjective: Patient was seen and examined this morning. Reports feeling much better. Expresses desire to get help with acute alcohol withdrawal/detoxification. Patient denies any visual hallucinations, however, does report auditiory hallucinations. Patient denies any pain or discomfort. The patient denies any fever, chills, nausea or vomiting. Review of Systems Constitutional: Reports: see HPI. Objective Last 24 Hrs of Vital Signs/I&O Vital Signs Date Time Temp Pulse Resp B/P Pulse O2 O2 Flow FiO2 Ox Delivery Rate 08/19 1136 97.3 87 20 140/60 93 Room Air / 0932 86 150/100 03/ 0920 98.0 86 20 150/100 93 Room Air / 0500 98.1 99 20 158/90 95 Room Air / 0200 98.4 96 20 168/94 03/ 0141 98.4 96 20 168/94 98 Room Air 03/ 2230 98.0 100 18 151/72 03/06 2220 98.0 100 18 151/72 99 Room Air / 202 123 16 180/88 03/ 2029 123 16 180/88 98 Room Air 03/06 1913 95.0 75 14 134/62 98 Room Air 03/06 1912 95.0 75 14 134/62 03/06 1906 Room Air 03/06 1630 68 18 118/58 03/06 1602 68 18 118/58 97 Room Air Intake & Output / 1600 /07 0800 03/ 0000 Intake Total 2700 1000 Output Total Balance 2700 1000 Intake, IV 300 1000 Intake, Oral 2400 Patient 140.614 kg Weight Physical Exam General Appearance: Alert, Oriented X3, Cooperative Cardiovascular: Normal S1, Normal S2, No Murmurs Lungs: Clear to Auscultation Abdomen: Normal Bowel Sounds, Soft, No Tenderness, Distended Abdomen Neurological: Normal Speech, Normal Tone, Sensation Intact Extremities: No Clubbing, No Cyanosis, No Edema Current Medications: Current Medications Sig/Teddy Start time Last Medication Dose Route Stop Time Status Admin Bupropion HCl 100 MG BID 08/19 1000 CAN PO Clonidine 0.1 MG BID 08/19 0200 AC 08/19 PO 0932 Cyanocobalamin 1,000 MCG DAILY 08/19 1000 AC 08/19 PO 0931 Cyanocobalamin/ 1 BAG DAILY 08/19 0300 AC 08/19 Thiamine/Pyridoxine IV 0342 Dextrose/Water 1,000 ML Diclofenac Sodium 1 DARWIN 4 TIMES/DAY PRN 08/18 2345 AC TOP Enoxaparin Sodium 40 MG DAILY 08/19 1000 AC 08/19 SC 0934 Folic Acid 1 MG DAILY 08/19 1000 AC 08/19 PO 0932 Haloperidol 1 MG Q6 PRN 08/19 0915 AC 08/19 PO 0932 Ibuprofen 600 MG Q6P PRN 08/18 2345 AC PO Lorazepam 1.5 MG Q6 08/19 1200 AC 08/19 PO 1136 Lorazepam 1 MG Q1P PRN 08/19 0915 AC IV Lorazepam 2 MG Q6 08/19 0600 CAN IV Lorazepam 2 MG Q6 08/19 0600 DC 08/19 PO 0528 Lorazepam 0.5 MG Q1P PRN 08/19 0030 DC 08/19 IV 0832 Lorazepam 2 MG ONE ONE 08/18 2330 DC 08/18 IV 08/18 2331 2341 Lorazepam 0 .STK-MED ONE 08/18 2322 DC .ROUTE Lorazepam 2 MG ONCE ONE 08/18 2100 DC 08/18 PO 08/18 2101 2100 Lorazepam 0 .STK-MED ONE 08/18 2100 DC PO Omeprazole 40 MG DAILY AC 08/19 0700 AC 08/19 PO 0527 Oxycodone HCl 5 MG Q6P PRN 08/18 2345 AC PO Sodium Chloride 1,000 ML Q13H 08/19 0230 AC IV Sodium Chloride 1,000 ML BOLUS ONE 08/18 1630 DC 08/18 IV 08/18 1729 1706 Thiamine HCl 100 MG DAILY 08/19 1000 AC 08/19 PO 0932 Last 24 Hrs of Lab/Devendra Results Last 24 Hrs of Labs/Mics: Laboratory Tests 08/19/16 0720: Anion Gap 9, Estimated GFR > 60, BUN/Creatinine Ratio 15.6, Magnesium 2.0, Total Bilirubin 1.3, Direct Bilirubin 0.6 H, AST 207 H, ALT 283 H, Alkaline Phosphatase 76, Total Protein 6.6, Albumin 3.9, CBC w Diff NO MAN DIFF REQ, RBC 4.75, MCV 94.0, MCH 32.4 H, RDW 15.6 H, MPV 8.7, Gran % 61.7, Lymphocytes % 26.4, Monocytes % 10.2 H, Eosinophils % 1.0, Basophils % 0.7, Absolute Granulocytes 2.7, Absolute Lymphocytes 1.2, Absolute Monocytes 0.5, Absolute Eosinophils 0, Absolute Basophils 0, PUBS MCHC 34.5 08/18/16 2115: Urine Opiates Screen < 100.00, Methadone Screen < 40, Barbiturate Screen < 60, Ur Phencyclidine Scrn < 6.00, Amphetamines Screen < 100, U Benzodiazepines Scrn < 85, Urine Cocaine Screen < 50, Urine Cannabis Screen 24.30 08/18/16 1625: Anion Gap 23 H, Estimated GFR > 60, BUN/Creatinine Ratio 12.7, Glucose 78, Calcium 9.5, Magnesium 2.1, Total Bilirubin 1.3, AST 408 H, ALT 410 H, Alkaline Phosphatase 99, Troponin I < 0.01, Total Protein 8.2, Albumin 4.9, Globulin 3.3, Albumin/Globulin Ratio 1.5, CBC w Diff NO MAN DIFF REQ, RBC 5.71, MCV 93.9, MCH 32.1 H, RDW 15.9 H, MPV 8.8, Gran % 78.3 H, Lymphocytes % 17.2 L, Monocytes % 3.5, Eosinophils % 0.6, Basophils % 0.4, Absolute Granulocytes 5.5, Absolute Lymphocytes 1.2, Absolute Monocytes 0.2, Absolute Eosinophils 0, Absolute Basophils 0, PUBS MCHC 34.2, Serum Alcohol 372.0 Assessment/Plan Assessment: Mr Aparicio is a 40-year-old gentleman with a significant history of alcohol dependence and multiple detoxification attempts and (an episode of withdrawal seizure),who presented with symptoms of alcohol intoxication with a serum the level of 370 and was requesting help with detoxification #Alcohol Withdrawal Patient is reporting a significant amount of daily alcohol intake (1/2 gallon of vodka daily for weeks). On admission Mr Aparicio was actively showing signs of intoxication including dizziness, slurred speech, palpitation, diaphoresis and increased anxiety. Physical examination was also remarkable for mild hand tremors, and his serum alcohol was also significantly elevated. CIWA protocol Seizure and fall precautions Lorazepam 2 mg scheduled every 6 and will taper accordingly-->1.5 mg Q6 Lorazepam when necessary per ciwa score (1mg) Current CIWA: 2,4,14,14,11,11,13 Folic acid, thiamine and multivitamin Psychiatric and social consults obtained. #Elevated blood pressures Most likely secondary to alcohol intoxication. Patient is also had increased risk of sustaining elevated blood pressure which can be seen during the Etoh withdrawal phase. We'll continue to monitor BP.Current pressure: 150/100. Coninue Clonidine 0.1 mg twice a day If pressure conitinue to be elevated, consider addition of an LEO inhibitor. #Transaminitis Most likely secondary to alcohol abuse. Patient is not endorsing any abdominal pain. Consider imaging if patient offeres compalints #Hyponatremia coupled with electrolyte derangements Often seen in cases of Alcohol abuse. Level on admission: 135 Moninor BEP and MG in AM #Tobacco abuse Nicotine 14 daily patch Smoking cessation conselling to be given. #History of depression Patient has a history of depression. Alcohol cessation can also precipitate depression. Wellbutrin has been discontinued owing to reducing the seizure threshold. Code: FC Problem List: 1. Alcoholism 2. Alcohol withdrawal syndrome 3. Alcohol dependence 4. Alcohol intoxication 5. Alcohol dependence with withdrawal Pain Ratin Pain Location: No Pain reported Pain Goal: Remain pain free Pain Plan: Oxycodone Ibuprofen Tomorrow's Labs & Rationales: BEP : Monitor electrolytes in the setting of Alcoholic Withdrawal Magnesium: Monitor electrolytes in the setting of Alcoholic Withdrawal KIMBERLY CARRIZALES MD 08/19/16 1159: Attending MD Review Statement Attending Statement Attending MD Statement: examined this patient, discuss w/resident/PA/TAFFY CANDY MAKER, agreed w/resident/PA/TAFFY CANDY MAKER, reviewed EMR data (avail), discussed with nursing, discussed with case mgmt, amended to note Attending Assessment/Plan: Patient seen and examined, claims that he's feeling better today compared to yesterday. Still have some tremors. In the morning he had some hallucinations according to psychiatric note. When we saw the patient he denies having any hallucinations. Vital Signs Date Time Temp Pulse Resp B/P Pulse O2 O2 Flow FiO2 Ox Delivery Rate 08/19 1136 97.3 87 20 140/60 93 Room Air 08/19 0932 86 150/100 08/19 0920 98.0 86 20 150/100 93 Room Air 08/19 0500 98.1 99 20 158/90 95 Room Air 08/19 0200 98.4 96 20 168/94 03/07 0141 98.4 96 20 168/94 98 Room Air 08/18 2230 98.0 100 18 151/72 / 2220 98.0 100 18 151/72 99 Room Air 08/18 2028 123 16 180/88 08/18 2028 123 16 180/88 98 Room Air 08/18 1913 95.0 75 14 134/62 98 Room Air 08/18 1912 95.0 75 14 134/62 / 1906 Room Air 08/18 1630 68 18 118/58 /06 1602 68 18 118/58 97 Room Air on exam; aox3, nad. cv; s1,s2, rrr. resp; clear abd; soft, nt, bs+ ext; no edema Laboratory Tests 08/19 Chemistry Sodium (137 - 145 mmol/L) 135 L Potassium (3.5 - 5.1 mmol/L) 4.4 Chloride (98 - 107 mmol/L) 99 Carbon Dioxide (22 - 30 mmol/L) 27 Anion Gap (5 - 16) 9 BUN (9 - 20 mg/dL) 14 Creatinine (0.7 - 1.2 mg/dL) 0.9 Estimated GFR (>60 ml/min) > 60 BUN/Creatinine Ratio (7 - 25 %) 15.6 Magnesium (1.6 - 2.3 mg/dL) 2.0 Total Bilirubin (0.2 - 1.3 mg/dL) 1.3 Direct Bilirubin (< 0.4 mg/dL) 0.6 H AST (17 - 59 U/L) 207 H ALT (21 - 72 U/L) 283 H Alkaline Phosphatase (< 127 U/L) 76 Total Protein (6.3 - 8.2 g/dL) 6.6 Albumin (3.5 - 5.0 g/dL) 3.9 Hematology CBC w Diff NO MAN DIFF REQ WBC (4.8 - 10.8 /CUMM) 4.4 L RBC (4.70 - 6.10 /CUMM) 4.75 Hgb (14.0 - 18.0 G/DL) 15.4 Hct (42 - 52 %) 44.6 MCV (80.0 - 94.0 FL) 94.0 MCH (27.0 - 31.0 PG) 32.4 H RDW (11.5 - 14.5 %) 15.6 H Plt Count (130 - 400 /CUMM) 164 MPV (7.4 - 10.4 FL) 8.7 Gran % (42.2 - 75.2 %) 61.7 Lymphocytes % (20.5 - 51.1 %) 26.4 Monocytes % (1.7 - 9.3 %) 10.2 H Eosinophils % (0 - 5 %) 1.0 Basophils % (0.0 - 2.0 %) 0.7 Absolute Granulocytes (1.4 - 6.5 /CUMM) 2.7 Absolute Lymphocytes (1.2 - 3.4 /CUMM) 1.2 Absolute Monocytes (0.10 - 0.60 /CUMM) 0.5 Absolute Eosinophils (0.0 - 0.7 /CUMM) 0 Absolute Basophils (0.0 - 0.2 /CUMM) 0 PUBS MCHC (33.0 - 37.0 G/DL) 34.5 Toxicology Urine Opiates Screen (>2000 NG/ML) < 100.00 Methadone Screen (>300 NG/ML) < 40 Barbiturate Screen (>200 NG/ML) < 60 Ur Phencyclidine Scrn (>25 NG/ML) < 6.00 Amphetamines Screen (>1000 NG/ML) < 100 U Benzodiazepines Scrn (>200 NG/ML) < 85 Urine Cocaine Screen (>300 NG/ML) < 50 Urine Cannabis Screen (>50 NG/ML) 24.30 03/06 1625 Chemistry Sodium (137 - 145 mmol/L) 146 H Potassium (3.5 - 5.1 mmol/L) 4.6 Chloride (98 - 107 mmol/L) 101 Carbon Dioxide (22 - 30 mmol/L) 22 Anion Gap (5 - 16) 23 H BUN (9 - 20 mg/dL) 14 Creatinine (0.7 - 1.2 mg/dL) 1.1 Estimated GFR (>60 ml/min) > 60 BUN/Creatinine Ratio (7 - 25 %) 12.7 Glucose (65 - 99 mg/dL) 78 Calcium (8.4 - 10.2 mg/dL) 9.5 Magnesium (1.6 - 2.3 mg/dL) 2.1 Total Bilirubin (0.2 - 1.3 mg/dL) 1.3 AST (17 - 59 U/L) 408 H ALT (21 - 72 U/L) 410 H Alkaline Phosphatase (< 127 U/L) 99 Troponin I (<0.11 ng/ml) < 0.01 Total Protein (6.3 - 8.2 g/dL) 8.2 Albumin (3.5 - 5.0 g/dL) 4.9 Globulin (1.9 - 4.2 gm/dL) 3.3 Albumin/Globulin Ratio (1.1 - 2.2 %) 1.5 Hematology CBC w Diff NO MAN DIFF REQ WBC (4.8 - 10.8 /CUMM) 7.1 RBC (4.70 - 6.10 /CUMM) 5.71 Hgb (14.0 - 18.0 G/DL) 18.3 H Hct (42 - 52 %) 53.5 H MCV (80.0 - 94.0 FL) 93.9 MCH (27.0 - 31.0 PG) 32.1 H RDW (11.5 - 14.5 %) 15.9 H Plt Count (130 - 400 /CUMM) 234 MPV (7.4 - 10.4 FL) 8.8 Gran % (42.2 - 75.2 %) 78.3 H Lymphocytes % (20.5 - 51.1 %) 17.2 L Monocytes % (1.7 - 9.3 %) 3.5 Eosinophils % (0 - 5 %) 0.6 Basophils % (0.0 - 2.0 %) 0.4 Absolute Granulocytes (1.4 - 6.5 /CUMM) 5.5 Absolute Lymphocytes (1.2 - 3.4 /CUMM) 1.2 Absolute Monocytes (0.10 - 0.60 /CUMM) 0.2 Absolute Eosinophils (0.0 - 0.7 /CUMM) 0 Absolute Basophils (0.0 - 0.2 /CUMM) 0 PUBS MCHC (33.0 - 37.0 G/DL) 34.2 Toxicology Serum Alcohol (<10 MG/DL) 372.0 A/P; 40-year-old male with past medical history significant for alcohol dependence, ADHD who is admitted with acute alcohol intoxication. Patient will be continued on scheduled as well as when necessary Ativan. He is on CIWA protocol he will be continued on multivitamin, folate and thiamine. Appreciate psychiatry input. Please order social work evaluation. DVT prophylaxis: Lovenox.
[2016-08-19 08:31] LABS: ABSOLUTE BASOPHIL COUNT 0 /CUMM (0.0-0.2); ABSOLUTE EOSINOPHIL COUNT 0 /CUMM (0.0-0.7); ABSOLUTE LYMPH COUNT 1.2 /CUMM (1.2-3.4); ABSOLUTE MONOCYTE COUNT 0.5 /CUMM (0.10-0.60); MEAN CORPUSCULAR HGB 32.4 PG (27.0-31.0); RED BLOOD CELL CT 4.75 /CUMM (4.70-6.10)
[2016-08-19 08:52] LABS: ABSOLUTE GRANULOCYTE CT 2.7 /CUMM (1.4-6.5); BASOPHIL % 0.7 % (0.0-2.0); GRANULOCYTE % 61.7 % (42.2-75.2); MEAN CORPUSCULAR HGB CONC 34.5 G/DL (33.0-37.0); MEAN PLATELET VOLUME 8.7 FL (7.4-10.4); PLATELET COUNT 164 /CUMM (130-400); RBC DISTRIBUTION WIDTH 15.6 % (11.5-14.5); WHITE BLOOD CELL COUNT 4.4 /CUMM (4.8-10.8)
[2016-08-19 08:56] LABS: HEMATOCRIT 44.6 % (42-52)
--- NOTE | 2016-08-19 09:08 | Event Note ---
Event Note Event Note: I saw the patient briefly at 0845 today. He is having auditory hallucinations and visual hallucinations ("I'm seeing someone in the chair there") He thinks he recalls an ICU detox. He has a history of seizure, per the triage note. Denies SI/HI. EKG reviewed 08/18/16: 46 bpm, sinus agustin, 46bpm, QTc 431 mS. VS 0500 158/90, 99 bpm, 98.1, 20RR, 95% RA CIWA 0820: 11 1. I will stop bupropion as this can lowre seizure threshold 2. I will start PRN Haldol PO for halluciosis. Continue to monitor EKG and hold for QTc > 475, arrythmia, or oversedation. Monitor and replete potassium and magnesium. 3. I have changed PRN Ativan to 1 mg. We will return to assist with lorazepam management. Yadiel Li APRN, Pager [phone]
--- NOTE | 2016-08-19 13:57 | NUR ---
Referral received this am via electronic telephone order clerk room service. This patient is a 40 year old man, admitted to the hospital late last evening with ETOH Withdrawal. The patietn was placed on the CIWA for observation of withdrawal symptoms and has been exhibiting symptoms of withdrawal. He has complained of some visual hallucinations,a nd is being treated with ativan and haldol. Of note, patient was here at hospital last month with related concerns but signed out AMA. Will follow and assist with appropriate aftercare planning.
--- NOTE | 2016-08-19 20:52 | NUR ---
HAD MD CHANGE CIWA SCALE. THERE WAS ONLY A CIWA SCALE FOR UP TO 11. PT WAS SCORING HIGHER THAN 11 DUE TO ANXIETY, SWEATING, AUDITORY HALLUCINATIONS. MD SWANN WAS INFORMED IN AM ABOUT PT'S HIGH BLOOD PRESSURE WELL AUDITORY HALLUCIINATIONS. ANURADHA GARZA FROM PSYCH PLACED ORDER FOR HALDOL PO. GAVE PT PO HALDOL IN AM PT SLEPT ON AND OFF FOR A FEW HOURS AND STATED HE FELT WAY MORE CALM AND GOOD. INFORMED GRILL COOK THAT PLACED PT ON NASAL CANNULA FOR COMFORT. PT'S O2 SAT WAS OK BUT PT FELT SOB AND WAS MEDICATED FOR ANXIETY. CONTINUE TO MONITOR.
[2016-08-20] VITALS (8 sets, daily range): BP systolic 115–158; BP diastolic 74–104
--- NOTE | 2016-08-20 06:18 | PN- Housestaff ---
ALEJANDRA CARRILLO,[facility] 08/20/16 0617: Subjective Follow-up For: Alcohol Withdrawal Subjective: Patient was seen and examined this [facility]. He is resting comfortably in bed. He reports no issues overnight. Patient states that he feels remarkably better. Patient does report subjective fever and chills owing to a potential cold environment however states that he has relief with subsequent blankets. Patient denies any nausea or vomiting. He also states that he has not had any further episodes of visual or auditory hallucinations. He denies any diaphoresis. Denies a feeling of anxiety. Review of Systems Constitutional: Reports: see HPI. Objective Last 24 Hrs of Vital Signs/I&O Vital Signs Date Time Temp Pulse Resp B/P Pulse O2 O2 Flow FiO2 Ox Delivery Rate 08/20 0840 60 158/100 08/20 0800 18 158/100 08/20 0645 98.1 57 20 158/100 96 Room Air 08/20 0400 98.5 83 20 140/82 08/20 0349 98.5 83 20 140/82 96 Room Air 08/19 2322 98.0 81 20 150/120 97 Nasal 1.0L Cannula 08/19 2114 91.0 146/82 08/19 1753 98.2 71 18 148/100 96 Nasal 2.0L Cannula 08/19 1428 97.8 74 20 150/80 92 Room Air 08/19 1420 97.8 74 18 150/80 Intake & Output 08/20 1600 08/20 0800 08/20 0000 Intake Total 1000 475 Output Total 550 Balance 450 475 Intake, IV 600 225 Intake, Oral 400 250 Number 1 Bowel Movements Output, Urine 550 Physical Exam General Appearance: Alert, Oriented X3, Cooperative, No Acute Distress Cardiovascular: Regular Rate, Normal S1, Normal S2, No Murmurs Lungs: Normal Air Movement Abdomen: Normal Bowel Sounds, Soft, No Tenderness, Distended Neurological: Normal Speech Current Medications: Current Medications Sig/Teddy Start time Last Medication Dose Route Stop Time Status Admin Clonidine 0.1 MG BID 08/19 0200 AC 08/20 PO 0840 Cyanocobalamin 1,000 MCG DAILY 08/19 1000 AC 08/20 PO 0840 Cyanocobalamin/ 1 BAG DAILY 08/19 0300 DC 08/19 Thiamine/Pyridoxine IV 0342 Dextrose/Water 1,000 ML Diclofenac Sodium 1 DARWIN 4 TIMES/DAY PRN 08/18 2345 AC TOP Enoxaparin Sodium 40 MG DAILY 08/19 1000 AC 08/20 SC 0840 Folic Acid 1 MG DAILY 08/19 1000 AC 08/20 PO 0840 Haloperidol 1 MG .STK-MED ONE 08/20 0235 DC PO 08/20 0236 Haloperidol 1 MG Q6 PRN 08/19 0915 AC 08/20 PO 0240 Ibuprofen 600 MG Q6P PRN 08/18 2345 AC PO Lorazepam 0.5 MG Q6 08/20 1200 DC PO 08/26 1159 Lorazepam 1 MG Q6 08/20 1200 AC 08/20 PO 1223 Lorazepam 0 Q1P PRN 08/19 1730 AC 08/20 IV 0840 Lorazepam 0.5 MG .STK-MED ONE 08/19 1720 DC PO 08/19 1721 Lorazepam 1.5 MG Q6 08/19 1200 DC 08/20 PO 0700 Lorazepam 1 MG Q1P PRN 08/19 0915 AC 08/19 IV 1714 Omeprazole 40 MG DAILY AC 08/19 0700 AC 08/20 PO 0657 Oxycodone HCl 5 MG Q6P PRN 08/18 2345 AC PO Patient Medication 1 ED .STK-MED ONE 08/19 1426 DC Teaching ED 08/19 1427 Sodium Chloride 1,000 ML Q13H 08/19 0230 DC 08/20 IV 0052 Thiamine HCl 100 MG DAILY 08/19 1000 AC 08/20 PO 0840 Assessment/Plan Assessment: Mr Aparicio is a 40-year-old gentleman with a significant history of alcohol dependence and multiple detoxification attempts and (an episode of withdrawal seizure),who presented with symptoms of alcohol intoxication with a serum the level of 370 and was requesting help with detoxification #Alcohol Withdrawal Patient is reporting a significant amount of daily alcohol intake (1/2 gallon of vodka daily for weeks). On admission Mr Aparicio was actively showing signs of intoxication including dizziness, slurred speech, palpitation, diaphoresis and increased anxiety. Physical examination was also remarkable for mild hand tremors, and his serum alcohol was also significantly elevated. CIWA protocol Seizure and fall precautions Lorazepam 2 mg scheduled every 6 and will taper accordingly-->1.5 mg Q6-->1mg Q6. Lorazepam should not be decreased by more than 20% over 24 period. Lorazepam when necessary per ciwa score (1mg) Current CIWA: 0,16,0,0,16,3,3,3 Folic acid, thiamine and multivitamin Psychiatric and social consults obtained. It seems that the patient has also had bipolar symptoms. He has also had a long -standing history of psychosis. Following recommendations from psychiatry we will start the patient on quetiapine for psychosis. An EKG has been ordered to monitor QTC (<475). 50 mg at bedtime and 25 mg twice a day has been started. #Elevated blood pressures Most likely secondary to alcohol intoxication. Patient is also had increased risk of sustaining elevated blood pressure which can be seen during the Etoh withdrawal phase. We'll continue to monitor BP.Current pressure: 115/80 Coninue Clonidine 0.1 mg twice a day If pressure conitinue to be elevated, consider addition of an LEO inhibitor. #Transaminitis Most likely secondary to alcohol abuse. Patient is not endorsing any abdominal pain. Consider imaging if patient offeres compalints #Hyponatremia coupled with electrolyte derangements Often seen in cases of Alcohol abuse. Level on admission: 135 Moninor BEP and MG in AM electrolytes on labs this morning were within normal limits. #Tobacco abuse Nicotine 14 daily patch Smoking cessation conselling to be given. #History of depression Patient has a history of depression. Alcohol cessation can also precipitate depression. Wellbutrin has been discontinued owing to reducing the seizure threshold. Code: FC Problem List: 1. Alcohol dependence with withdrawal 2. Alcoholic hepatitis 3. Alcohol intoxication 4. Alcohol dependence 5. Alcohol withdrawal syndrome Pain Ratin Pain Location: No Pain reported Pain Goal: Remain pain free Pain Plan: Ibuprofen Tomorrow's Labs & Rationales: BEP: Monitor Electrolytes in the setting of Alcohol withdrawal. And Magnesium ALL CARRILLO,KIMBERLY 08/20/16 1227: Attending MD Review Statement Attending Statement Attending MD Statement: examined this patient, discuss w/resident/PA/INFORMATION SYSTEMS TECHNICIAN, agreed w/resident/PA/INFORMATION SYSTEMS TECHNICIAN, reviewed EMR data (avail), discussed with nursing, discussed with case mgmt, amended to note Attending Assessment/Plan: Patient seen and examined, claims that he's feeling slightly better. CIWA scores are still running in the significant range. Vital Signs Date Time Temp Pulse Resp B/P Pulse O2 O2 Flow FiO2 Ox Delivery Rate 08/21 0740 60 158/100 03/08 0800 18 158/100 08/20 0645 98.1 57 20 158/100 96 Room Air 08/20 0400 98.5 83 20 140/82 03 0349 98.5 83 20 140/82 96 Room Air 08/19 2322 98.0 81 20 150/120 97 Nasal 1.0L Cannula 08/19 2114 91.0 146/82 08/19 1753 98.2 71 18 148/100 96 Nasal 2.0L Cannula 08/19 1428 97.8 74 20 150/80 92 Room Air 08/19 1420 97.8 74 18 150/80 on exam; aox3, nad. cv; s1,s2, rrr resp; clear abd; soft, nt, bs+ ext; no edema. no labs. A/P: 40-year-old male with past medical history significant for alcohol dependence, ADHD who is admitted with acute alcohol intoxication. Agree with scheduled Ativan taper. Will continue the when necessary Ativan. Continue multivitamin, folate and thiamine. Appreciate psychiatry input. Patient was seen by social work. Will DC the IV fluids. DVT prophylaxis: Lovenox.
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
[2016-08-21 00:50] VITALS: BP 134/74
--- NOTE | 2016-08-21 05:48 | PN- Housestaff ---
ALEJANDRA CARRILLO,[facility] 08/21/16 0548: Subjective Follow-up For: Alcohol Withdrawal Subjective: Mr. Aparicio was seen and examined this morning. He is resting comfortably in bed. He reports no issues overnight. Patient does state that he has had a hard time sleeping owing to multiple years of insomnia. Patient does report subjective auditory hallucinations coming from the vent of the duct. Patient states that voices speaking to him however not instructing him to cause harm to self or to others. Patient denies any fever, chills, nausea, vomiting. Patient does report that he is getting better in terms of a withdrawal of alcohol perspective. Review of Systems Constitutional: Reports: see HPI. Objective Last 24 Hrs of Vital Signs/I&O Vital Signs Date Time Temp Pulse Resp B/P Pulse O2 O2 Flow FiO2 Ox Delivery Rate 08/21 06 98.1 79 19 140/74 97 Room Air 08/20 2200 98.3 82 18 138/74 08/20 2156 98.3 82 18 138/74 98 Room Air 08/20 2115 82 138/74 08/20 1405 98.3 77 20 115/80 93 Room Air 08/20 1200 82 18 150/104 08/20 0840 60 158/100 08/20 0800 18 158/100 Intake & Output 08/21 0800 08/21 0000 08/20 1600 Intake Total 700 1100 Output Total 800 Balance 700 300 Intake, IV 300 Intake, Oral 700 800 Number 0 Bowel Movements Output, Urine 800 Physical Exam General Appearance: Alert, Oriented X3, Cooperative Cardiovascular: Normal S1, Normal S2, No Murmurs Lungs: Clear to Auscultation Abdomen: Normal Bowel Sounds, Soft, No Tenderness Neurological: Normal Speech, Strength at 5/5 X4 Ext Extremities: No Clubbing, No Cyanosis Current Medications: Current Medications Sig/Teddy Start time Last Medication Dose Route Stop Time Status Admin Clonidine 0.1 MG BID 08/19 0200 AC 08/20 PO 2115 Cyanocobalamin 1,000 MCG DAILY 08/19 1000 AC 08/20 PO 0840 Cyanocobalamin/ 1 BAG DAILY 08/19 0300 DC 08/19 Thiamine/Pyridoxine IV 0342 Dextrose/Water 1,000 ML Diclofenac Sodium 1 DARWIN 4 TIMES/DAY PRN 08/18 2345 AC TOP Enoxaparin Sodium 40 MG DAILY 08/19 1000 AC 03/08 SC 0840 Folic Acid 1 MG DAILY 08/19 1000 AC 08/20 PO 0840 Haloperidol 1 MG Q6 PRN 08/19 0915 DC 08/20 PO 0240 Ibuprofen 600 MG Q6P PRN 08/18 2345 AC PO Lorazepam 0.5 MG Q6 08/20 1200 DC PO 08/26 1159 Lorazepam 1 MG Q6 08/20 1200 AC 08/21 PO 0620 Lorazepam 0 Q1P PRN 08/19 1730 AC 08/21 IV 0415 Lorazepam 1.5 MG Q6 08/19 1200 DC 08/20 PO 0700 Lorazepam 1 MG Q1P PRN 08/19 0915 DC 08/20 IV 1909 Omeprazole 40 MG DAILY AC 08/19 0700 AC 08/21 PO 0620 Oxycodone HCl 5 MG Q6P PRN 08/18 2345 AC PO Patient Medication 1 ED ONE ONE 08/20 1400 DC 08/20 Teaching ED 08/20 1401 2115 Quetiapine Fumarate 50 MG AT BEDTIME 08/20 2200 AC 08/20 PO 2115 Quetiapine Fumarate 25 MG BID PRN 08/20 1345 AC PO Sodium Chloride 1,000 ML Q13H 08/19 0230 DC 08/20 IV 0052 Thiamine HCl 100 MG DAILY 08/19 1000 AC 08/20 PO 0840 Assessment/Plan Assessment: Mr Aparicio is a 40-year-old gentleman with a significant history of alcohol dependence and multiple detoxification attempts and (an episode of withdrawal seizure),who presented with symptoms of alcohol intoxication with a serum the level of 370 and was requesting help with detoxification #Alcohol Withdrawal Patient is reporting a significant amount of daily alcohol intake (1/2 gallon of vodka daily for weeks). On admission Mr Aparicio was actively showing signs of intoxication including dizziness, slurred speech, palpitation, diaphoresis and increased anxiety. Physical examination was also remarkable for mild hand tremors, and his serum alcohol was also significantly elevated. CIWA protocol Seizure and fall precautions Lorazepam 2 mg scheduled every 6 and will taper accordingly-->1.5 mg Q6-->1mg Q6. Lorazepam should not be decreased by more than 20% over 24 period. Lorazepam when necessary per ciwa score (1mg) Current CIWA: 3,3,3,4,8,3,11,5,4 Folic acid, thiamine and multivitamin Psychiatric and social consults obtained. It seems that the patient has also had bipolar symptoms. He has also had a long -standing history of psychosis. Following recommendations from psychiatry we will start the patient on quetiapine for psychosis. An EKG has been ordered to monitor QTC (<475). 50 mg at bedtime and 25 mg twice a day has been started. QTC 410 Melatonin 5 mg at bed time #Elevated blood pressures Most likely secondary to alcohol intoxication. Patient is also had increased risk of sustaining elevated blood pressure which can be seen during the Etoh withdrawal phase. We'll continue to monitor BP.Current pressure: 115/80 Coninue Clonidine 0.1 mg twice a day If pressure conitinue to be elevated, consider addition of an LEO inhibitor. #Transaminitis Most likely secondary to alcohol abuse. Patient is not endorsing any abdominal pain. Consider imaging if patient offeres compalints #Hyponatremia coupled with electrolyte derangements Often seen in cases of Alcohol abuse. Level on admission: 135 Moninor BEP and MG in AM electrolytes on labs this morning were within normal limits. #Tobacco abuse Nicotine 14 daily patch Smoking cessation conselling to be given. #History of depression Patient has a history of depression. Alcohol cessation can also precipitate depression. Wellbutrin has been discontinued owing to reducing the seizure threshold. Code: FC Problem List: 1. Alcohol dependence with withdrawal 2. Alcoholic hepatitis 3. Alcohol dependence 4. Alcohol withdrawal syndrome 5. Bipolar affective disorder Pain Ratin Pain Location: No Pain Pain Goal: Remain pain free Pain Plan: Ibuprofen Tomorrow's Labs & Rationales: BEP: monitoring K and MG ALL CARRILLO,KIMBERLY 08/21/16 1155: Attending MD Review Statement Attending Statement Attending MD Statement: examined this patient, discuss w/resident/PA/DROP MAN, agreed w/resident/PA/DROP MAN, reviewed EMR data (avail), discussed with nursing, discussed with case mgmt, amended to note Attending Assessment/Plan: Patient seen and examined, he was resting. Denies any complaints. CIWA scores are running in the lower range now. Vital signs are stable. At this point we will further go down on his scheduled Ativan. Continue when necessary Ativan. Continue multi vitamin folate and thiamine. Patient will be started on Seroquel as recommended by psych. Social work to follow-up on the patient for an outpatient alcohol rehabilitation. Agree with adding melatonin for insomnia. DVT px: Lovenox.
[2016-08-21 06:15] VITALS: BP 140/74
[2016-08-21 06:37] VITALS: BP 140/74
[2016-08-21 08:00] VITALS: BP 140/74
--- NOTE | 2016-08-21 11:32 | Patient Discharge Instructions ---
Discharge Instructions General Discharge Information You were seen/treated for: Alcohol Withdrawal Watch for these problems: Fever, nausea, vomiting, chills, weakness, increased generalized edema. Palpitations. Chest pain. Shortness of breath. Excessive pain or decreased mobility from you wound. If you have any adverse reactions from any of the medications prescribed please inform your primary care physician and you may be required to come back to the emergency department. Thank you for allowing us to be part of your care. Special Instructions: Please follow up with you primary care physician in one week. Please inform your PCP about the medication changes we have made. Please follow up for your [facility] appointment on 08/25/16, at 2PM, with Laura, at [address] [place] [address]. Please bring your photo ID and your insurance card. Diet Continue normal diet: Yes Activity Full Activity/No Limits: Yes Acute Coronary Syndrome Inclusion Criteria At DC or during hospital stay patient has or had the following: ACS DIAGNOSIS No Discharge Core Measures Meds if any: Prescribed or Continued at Discharge Meds if any: NOT Prescribed or Continued at Discharge Congestive Heart Failure Inclusion Criteria At DC or during hospital stay patient has or had the following: CHF DIAGNOSIS No Discharge Core Measures Meds if any: Prescribed or Continued at Discharge Meds if any: NOT Prescribed or Continued at Discharge Cerebrovascular accident Inclusion Criteria At DC or during hospital stay patient has or had the following: CVA/TIA Diagnosis No Discharge Core Measures Meds if any: Prescribed or Continued at Discharge Meds if any: NOT Prescribed or Continued at Discharge Venous thromboembolism Inclusion Criteria VTE Diagnosis No VTE Type NONE VTE Confirmed by (Test) NONE Discharge Core Measures - Per Current guidelines, there needs to be overlap - treatment for the first 5 days of Warfarin therapy. - If discharged on Warfarin prior to 5 days of - overlap therapy, the patient will need to be - assessed for post discharge needs including - *Post discharge parental anticoagulation - *Warfarin and/or parental anticoagulation education - *Follow up date to check INR post discharge At least 5 days overlap therapy as Inpatient No Meds if any: Prescribed or Continued at Discharge Note: Overlap Therapy is Warfarin and Anticoagulant Meds if any: NOT Prescribed or Continued at Discharge
--- NOTE | 2016-08-21 11:56 | PN- Psychiatry ---
See Addendum Assessment/Plan Impression: The patient states that he disclosed his long history of auditory hallucinations yesterday here for the first time, "Because I was always scared to tell someone, that I'd be locked up in the looney bin." He states that his mother knew about them, and his , who was upset that he told me yesterday, also fears that he would be locked up. He has furnished written permission to speak with his last treating psychiatrist , Dr. Sirena Wang, , whom he last saw in March,, before he went to [facility]. Dr. Wang had prescribed Suboxone, Adderall and Ambien to treat narcolepsy, but at the patient's request, had tapered him off these medications. At that point, the patient felt that he needed a residential rehab for alcohol, and was admitted there. He reports that [facility] encouraged alternate education, mainly on Jainism; he reports poor food and 10 hour education classes, 7 days per week , all of which he believes led to suboptimal response to treatment. Lost to followup after that until presentation to in July. I have placed a call to Dr. Wang, and am expecting a return call. Suggestion: 1. Continue ETOH Detox protocol, reducing total lorazepam by no more than 20% per day. The patient has received 10 mg of lorazepam in the 24 hours preceding my visit at 1000 today. 2. Please increase quetiapine/Seroquel at bedtime to 100 mg PO for psychosis. a. Hold this medication if arrythmia, bradycardia, oversedation, or QTc greater than 475 mS. b. Monitor and replete electrolytes, especially potassium and magnesium, to the upper portion of the normal range. 08/21/16: Potassium 4.2; magnesium 2.1. 3. Continue quetiapine/Seroquel 25 mg PO 2X/day, as needed, for agitation or hallucinations. 4. The patient will need a IOP appointment. Please advise us when the patient 's discharge date is known, and we will arrange for this intake appointment. We will continue to follow along with you. Samir Li APRN, Pager [phone] Subjective Subjective: Patient seen today, , 08/21/16, at 1000, in room 230-2. Sleepy, but arousable. Oriented to person, place but not day. He reports he sometimes does not know the day, but he never forgets his anniversary, nor his 's birthday. He states, "The voices start in a hypnogogic state," and they are not currently present, but he heard the air duct talking to him last night. The Seroquel helped alittle bit to quiet these voices, which are non-command. Thought processes are logical and linear. Mood is sad; affect congruent. Denies SI/HI. Objective Last 24 Hrs of Vital Signs/I&O Vital Signs Date Time Temp Pulse Resp B/P Pulse O2 O2 Flow FiO2 Ox Delivery Rate 08/21 0837 88 130/80 08/21 0800 98.1 79 19 140/74 / 0637 98.1 79 19 140/74 97 Room Air /08 2200 98.3 82 18 138/74 03/08 2156 98.3 82 18 138/74 98 Room Air / 2115 82 138/74 03/08 1405 98.3 77 20 115/80 93 Room Air / 1200 82 18 150/104 Intake & Output 08/21 1600 08/21 0800 08/21 0000 Intake Total 700 Output Total Balance 700 Intake, Oral 700 Current Medications: Current Medications Sig/Teddy Start time Last Medication Dose Route Stop Time Status Admin Clonidine 0.1 MG BID 08/19 0200 AC 08/21 PO 0837 Cyanocobalamin 1,000 MCG DAILY 08/19 1000 AC 08/21 PO 0837 Diclofenac Sodium 1 DARWIN 4 TIMES/DAY PRN 08/18 2345 AC TOP Enoxaparin Sodium 40 MG DAILY 08/19 1000 AC 08/21 SC 0837 Folic Acid 1 MG DAILY 08/19 1000 AC 08/21 PO 0837 Haloperidol 1 MG Q6 PRN 08/19 0915 DC 08/20 PO 0240 Ibuprofen 600 MG Q6P PRN 08/18 2345 AC PO Lorazepam 0.5 MG Q6 08/21 1200 AC PO 08/27 1159 Lorazepam 1 MG Q6 08/20 1200 DC 08/21 PO 0620 Lorazepam 0 Q1P PRN 08/19 1730 AC 08/21 IV 0415 Lorazepam 1 MG Q1P PRN 03/07 0915 DC 08/20 IV 1909 Melatonin 5 MG AT BEDTIME 08/21 2200 AC PO Omeprazole 40 MG DAILY AC 08/19 0700 AC 08/21 PO 0620 Oxycodone HCl 5 MG Q6P PRN 08/18 2345 AC PO Patient Medication 1 ED ONE ONE 08/20 1400 DC 08/20 Teaching ED 08/20 1401 2115 Quetiapine Fumarate 50 MG AT BEDTIME 08/20 2200 AC 08/20 PO 2115 Quetiapine Fumarate 25 MG BID PRN 08/20 1345 AC 08/21 PO 0836 Thiamine HCl 100 MG DAILY 08/19 1000 AC 08/21 PO 0836 Results Last 24 Hrs of Labs/Mics: Laboratory Tests 08/21 699 Chemistry Sodium (137 - 145 mmol/L) 139 Potassium (3.5 - 5.1 mmol/L) 4.2 Chloride (98 - 107 mmol/L) 104 Carbon Dioxide (22 - 30 mmol/L) 24 Anion Gap (5 - 16) 12 BUN (9 - 20 mg/dL) 13 Creatinine (0.7 - 1.2 mg/dL) 0.9 Estimated GFR (>60 ml/min) > 60 BUN/Creatinine Ratio (7 - 25 %) 14.4 Magnesium (1.6 - 2.3 mg/dL) 2.1
[2016-08-21 14:50] VITALS: BP 136/88
[2016-08-21 22:19] VITALS: BP 122/80
[2016-08-22 06:00] VITALS: BP 122/80
--- NOTE | 2016-08-22 06:40 | PN- Housestaff ---
See Addendum Subjective Follow-up For: Alcohol Withdrawal Subjective: Mr. Aparicio was seen and examined this morning is resting comfortably in bed. He reports overnight he feels cooped up and is eager to move to the next stage of his care. He also appears very tearful this morning owing to the fact that he feels that he stuck in bed as opposed to being able to be outside. Patient expresses his concern that he is beginning to get increasingly restless and may not be able to tolerate the inpatient environment for much longer. He is reporting a good by mouth intake and denies any auditory or visual hallucinations. He states that the melatonin which was prescribed to him yesterday had no effect. The patient denies any fever, chills, nausea, vomiting. Review of Systems Constitutional: Reports: see HPI. Objective Last 24 Hrs of Vital Signs/I&O Vital Signs Date Time Temp Pulse Resp B/P Pulse O2 O2 Flow FiO2 Ox Delivery Rate 08/22 816 105 120/80 08/22 0800 98.0 105 18 120/80 08/22 0737 98.1 74 19 122/80 95 Room Air 08/21 2219 98.0 77 18 122/80 95 08/21 1450 97.5 81 20 136/88 97 Intake & Output 08/22 1600 08/22 0800 08/22 0000 Intake Total 800 Output Total Balance 800 Intake, Oral 800 Physical Exam General Appearance: Alert, Oriented X3, Cooperative, No Acute Distress Cardiovascular: Regular Rate, Normal S1, Normal S2, No Murmurs Lungs: Clear to Auscultation Abdomen: Normal Bowel Sounds, Soft, No Tenderness Neurological: Normal Gait, Normal Speech, Strength at 5/5 X4 Ext Extremities: No Clubbing, No Cyanosis, No Edema Current Medications: Current Medications Sig/Teddy Start time Last Medication Dose Route Stop Time Status Admin Clonidine 0.1 MG BID 08/19 0200 AC 08/22 PO 17 Cyanocobalamin 1,000 MCG DAILY 08/19 1000 AC 08/22 PO 816 Diclofenac Sodium 1 DARWIN 4 TIMES/DAY PRN 08/18 2345 AC TOP Enoxaparin Sodium 40 MG DAILY 08/19 1000 AC 08/22 SC 0817 Folic Acid 1 MG DAILY 08/19 1000 AC 08/22 PO 0817 Ibuprofen 600 MG Q6P PRN 08/18 2345 AC PO Lorazepam 0.5 MG Q6 08/21 1200 AC 08/22 PO 08/27 1159 0655 Lorazepam 1 MG Q6 08/20 1200 DC 08/21 PO 0620 Lorazepam 0 Q1P PRN 08/19 1730 AC 08/22 IV 0825 Melatonin 5 MG AT BEDTIME 08/21 2200 AC 08/21 PO 2106 Omeprazole 40 MG DAILY AC 08/19 0700 AC 08/22 PO 0655 Oxycodone HCl 5 MG Q6P PRN 08/18 2345 AC PO Quetiapine Fumarate 100 MG AT BEDTIME 08/22 2200 AC PO Quetiapine Fumarate 50 MG AT BEDTIME 08/20 2200 DC 08/21 PO 2106 Quetiapine Fumarate 25 MG BID PRN 08/20 1345 AC 08/21 PO 0836 Thiamine HCl 100 MG DAILY 08/19 1000 AC 08/22 PO 0817 Last 24 Hrs of Lab/Devendra Results Last 24 Hrs of Labs/Mics: Laboratory Tests 08/22/16 0620: Anion Gap 10, Estimated GFR > 60, BUN/Creatinine Ratio 17.8, Magnesium 2.3 Assessment/Plan Assessment: Mr Aparicio is a 40-year-old gentleman with a significant history of alcohol dependence and multiple detoxification attempts and (an episode of withdrawal seizure),who presented with symptoms of alcohol intoxication with a serum the level of 370 and was requesting help with detoxification #Alcohol Withdrawal Patient is reporting a significant amount of daily alcohol intake (1/2 gallon of vodka daily for weeks). On admission Mr Aparicio was actively showing signs of intoxication including dizziness, slurred speech, palpitation, diaphoresis and increased anxiety. Physical examination was also remarkable for mild hand tremors, and his serum alcohol was also significantly elevated. CIWA protocol Seizure and fall precautions Lorazepam 2 mg scheduled every 6 and will taper accordingly-->1.5 mg Q6-->1mg Q6 (08/21/2016).--> 0.5 mg Q6. Received 8 mg in the previous 24 hours period. Lorazepam should not be decreased by more than 20% over 24 period. Lorazepam when necessary per ciwa score (1mg) Current CIWA: 0,0,0,8,3,0,9,8 Folic acid, thiamine and multivitamin Patient feels anxious about being discharged sooner however have reassured him that medical team will having discharged as soon as is medically stable. It seems that the patient has also had bipolar symptoms. He has also had a long -standing history of psychosis. Following recommendations from psychiatry we will start the patient on quetiapine for psychosis. An EKG has been ordered to monitor QTC (<475). 100 mg at bedtime and 25 mg twice PRN a day has been started. Last QTC: 410 Melatonin 5 mg at bed time #Elevated blood pressures Most likely secondary to alcohol intoxication. Patient is also had increased risk of sustaining elevated blood pressure which can be seen during the Etoh withdrawal phase. We'll continue to monitor BP.Current pressure: 120/80 Coninue Clonidine 0.1 mg twice a day If pressure conitinue to be elevated, consider addition of an LEO inhibitor. #Transaminitis Most likely secondary to alcohol abuse. Patient is not endorsing any abdominal pain. Consider imaging if patient offeres compalints #Hyponatremia coupled with electrolyte derangements Often seen in cases of Alcohol abuse. Level on admission: 135 Moninor BEP and MG in AM electrolytes on labs this morning were within normal limits. #Tobacco abuse Nicotine 14 daily patch Smoking cessation conselling to be given. #History of depression Patient has a history of depression. Alcohol cessation can also precipitate depression. Wellbutrin has been discontinued owing to reducing the seizure threshold. Code: FC Problem List: 1. Alcoholism 2. Alcohol withdrawal syndrome 3. Anasarca 4. Alcohol dependence Pain Ratin Pain Location: No Pain reported Pain Goal: Remain pain free Pain Plan: Tylenol PRN Tomorrow's Labs & Rationales: BEP and Magnesium
[2016-08-22 07:37] VITALS: BP 122/80
[2016-08-22 08:00] VITALS: BP 120/80
--- NOTE | 2016-08-22 11:21 | PN- Psychiatry ---
See Addendum Assessment/Plan Impression: Auditory hallucinations have resolved, so far, with Seroquel therapy. We have not had a return call from his former psychiatrist, Dr. Sirena Wang , . 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 It has not been happening very much lately. Dr. Wang had tried Adderall and Ambien to regulate his sleep cycle, but the patient wanted to stop therapy because his spouse is anti-medication. He felt the Adderall worked well, but without the Ambien, he would be up to 3-4AM, and only get 3-4 hours of sleep. His normal sleep cycle would be to sleep all day and be awake at night. He reports stressors at home R/T his drinking and some other issues with his spouse. He wishes to start Antabuse therapy, and wants to come to [facility] and attend AA meetings. Suggestion: 1. Continue ETOH Detox protocol, reducing total lorazepam by no more than 20% per day. The patient has received 8 mg of lorazepam in the 24 hours preceding my visit at 1035 today. 2. Please continue quetiapine/Seroquel at bedtime to 100 mg PO for psychosis. a. Hold this medication if arrythmia, bradycardia, oversedation, or QTc greater than 475 mS. b. Monitor and replete electrolytes, especially potassium and magnesium, to the upper portion of the normal range. 3. Continue quetiapine/Seroquel 25 mg PO 2X/day, as needed, for agitation/ anxiety or hallucinations. 4. The patient has a IOP appointment on 08/25/16, at 2PM, with Laura, at [address] [place] [address]. He is to bring his photo ID and his insurance card. He has been informed of this, and an appointment card has been left with nursing. Please include this information on the discharge instructions. 5. Consider genetic testing, such as [facility]. The patient reports unusual or paradoxic reactions to some drugs. 6. The patient would like to start Antabuse (Disulfuram) therapy. I have ordered a hepatic panel today, and unfortunately, his liver is still irritated, and this medication should not be started until it has returned to normal. I have performed teaching with nursing, housestaff and the patient on strictly avoiding anything that has alcohol in it, including wipes, injectables, mouthwash. cologne, etc. Naltrexone may be considered as an outpatient at the IOP program. 7. I have started gabapentin 100 mg PO every 8 hours as needed for anxiety, an off-label use. This may be advanced to 300 mg PO every 8 hours PRN, if tolerated. We will continue to follow along with you. Samir Li APRN, Pager [phone] Subjective Subjective: A+OX4. Sleep has improved to 5-6 hours from 2 hours. Auditory hallucinations have resolved with quetiapine. Denies VH/TH; presents no ana delusions. Depression 01/22, anxiety 6-12/22; 10 worst. Endorses hopelessness and worthlessness sometimes; denies helplessness. Denies suicidal or homicidal ideation. Denies paranoia. Objective Last 24 Hrs of Vital Signs/I&O Vital Signs Date Time Temp Pulse Resp B/P Pulse O2 O2 Flow FiO2 Ox Delivery Rate 08/22 1433 97.8 81 20 135/70 96 08/22 0817 105 120/80 08/22 0800 98.0 105 18 120/80 08/22 0737 98.1 74 19 122/80 95 Room Air 08/22 0600 98.1 74 19 122/80 / 2219 98.0 77 18 122/80 95 Intake & Output 08/22 1600 08/22 0800 08/22 0000 Intake Total 800 200 800 Output Total Balance 800 200 800 Intake, IV 0 Intake, Oral 800 200 800 Number 0 Bowel Movements Patient 310 lb Weight Results Last 24 Hrs of Labs/Mics: Laboratory Tests 08/22 0620 Chemistry Sodium (137 - 145 mmol/L) 138 Potassium (3.5 - 5.1 mmol/L) 4.1 Chloride (98 - 107 mmol/L) 106 Carbon Dioxide (22 - 30 mmol/L) 23 Anion Gap (5 - 16) 10 BUN (9 - 20 mg/dL) 16 Creatinine (0.7 - 1.2 mg/dL) 0.9 Estimated GFR (>60 ml/min) > 60 BUN/Creatinine Ratio (7 - 25 %) 17.8 Magnesium (1.6 - 2.3 mg/dL) 2.3 Total Bilirubin (0.2 - 1.3 mg/dL) 1.6 H Direct Bilirubin (< 0.4 mg/dL) 0.6 H AST (17 - 59 U/L) 437 H ALT (21 - 72 U/L) 451 H Alkaline Phosphatase (< 127 U/L) 69 Total Protein (6.3 - 8.2 g/dL) 7.4 Albumin (3.5 - 5.0 g/dL) 4.4
[2016-08-22 14:33] VITALS: BP 135/70
[2016-08-22] MEDS ORDERED: QUETIAPINE FUM100 M1 PO (14:55)
[2016-08-22 23:45] VITALS: BP 118/80
[2016-08-23 02:18] VITALS: BP 122/74
[2016-08-23 06:34] VITALS: BP 116/78
--- NOTE | 2016-08-23 07:55 | PN- Housestaff ---
ALEJANDRA CARRILLO,[facility] 08/23/16 0754: Subjective Follow-up For: Alcohol Withdrawal Subjective: Mr. Aparicio was seen and examined this morning. He reports no issues overnight. Patient states he is eager to be discharged. Patient denies any fever, chills, nausea, vomiting he denies any auditory or visual hallucinations. Review of Systems Constitutional: Reports: see HPI. Objective Last 24 Hrs of Vital Signs/I&O Vital Signs Date Time Temp Pulse Resp B/P Pulse O2 O2 Flow FiO2 Ox Delivery Rate 08/23 0924 116/78 08/23 0634 98.0 88 18 116/78 95 Room Air 08/23 0218 97.6 80 18 122/74 97 08/22 2345 98.5 91 18 118/80 96 Room Air Intake & Output 08/23 1600 08/23 0800 08/23 0000 Intake Total 200 900 Output Total Balance 200 900 Intake, Oral 200 900 Physical Exam General Appearance: Alert, Oriented X3, Cooperative Cardiovascular: Regular Rate, Normal S1, Normal S2 Lungs: Clear to Auscultation, Normal Air Movement Abdomen: Normal Bowel Sounds, Soft, No Tenderness Neurological: Normal Gait, Normal Speech Extremities: No Clubbing, No Cyanosis, No Edema Current Medications: Current Medications Sig/Teddy Start time Last Medication Dose Route Stop Time Status Admin Clonidine 0.1 MG BID 08/19 0200 DCD 08/23 PO 0924 Cyanocobalamin 1,000 MCG DAILY 08/19 1000 DCD 08/23 PO 0924 Diclofenac Sodium 1 DARWIN 4 TIMES/DAY PRN 08/18 2345 DCD TOP Enoxaparin Sodium 40 MG DAILY 08/19 1000 DCD 08/23 SC 0924 Folic Acid 1 MG DAILY 08/19 1000 DCD 08/23 PO 0924 Gabapentin 100 MG Q8 PRN 08/22 1215 DCD 08/22 PO 1224 Ibuprofen 600 MG Q6P PRN 08/18 2345 DCD PO Lorazepam 0.5 MG TID 08/22 1600 DCD 08/23 PO 08/29 1559 0924 Lorazepam 1 MG Q2P PRN 08/22 1530 DCD PO Lorazepam 0.5 MG Q2P PRN 08/22 1530 DCD 08/23 PO 08/29 1529 1148 Melatonin 5 MG AT BEDTIME 08/21 2200 DCD 08/22 PO 2115 Omeprazole 40 MG DAILY AC 08/19 0700 DCD 08/23 PO 0607 Oxycodone HCl 5 MG Q6P PRN 08/18 2345 DCD PO Patient Medication 1 UNIT 1600 08/22 1600 DC 08/22 Teaching ED 08/22 1601 1736 Quetiapine Fumarate 100 MG AT BEDTIME 08/22 2200 DCD 08/22 PO 2114 Quetiapine Fumarate 25 MG BID PRN 08/20 1345 DCD 08/22 PO 1529 Thiamine HCl 100 MG DAILY 08/19 1000 DCD 08/23 PO 0924 Last 24 Hrs of Lab/Devendra Results Last 24 Hrs of Labs/Mics: Laboratory Tests 08/23/16 0755: Anion Gap 14, Estimated GFR > 60, BUN/Creatinine Ratio 18.0, Magnesium 2.3 Assessment/Plan Assessment: Mr Aparicio is a 40-year-old gentleman with a significant history of alcohol dependence and multiple detoxification attempts and (an episode of withdrawal seizure),who presented with symptoms of alcohol intoxication with a serum the level of 370 and was requesting help with detoxification #Alcohol Withdrawal Patient is reporting a significant amount of daily alcohol intake (1/2 gallon of vodka daily for weeks). On admission Mr Aparicio was actively showing signs of intoxication including dizziness, slurred speech, palpitation, diaphoresis and increased anxiety. Physical examination was also remarkable for mild hand tremors, and his serum alcohol was also significantly elevated. CIWA protocol Seizure and fall precautions Lorazepam 2 mg scheduled every 6 and will taper accordingly-->1.5 mg Q6-->1mg Q6 (08/21/2016).--> 0.5 mg Q6. Received 8 mg in the previous 24 hours period. Lorazepam should not be decreased by more than 20% over 24 period. Patient will be given 0.5 mg this a.m Lorazepam. 0.5mg in the afternoon prior to discharge. He will subsequently finishes taper over the next 48 hours. Another 0.5 mg of lorazepam will be prescribed at bedtime tonight. He will get 0.5 mg twice a day tomorrow. And a one-time dose of 0.5 mg Ativan. Lorazepam when necessary per ciwa score (1mg) Current CIWA: 0,0,0,0,0,4,0,2,5 Folic acid, thiamine and multivitamin Patient feels anxious about being discharged sooner however have reassured him that medical team will having discharged as soon as is medically stable. It seems that the patient has also had bipolar symptoms. He has also had a long -standing history of psychosis. Following recommendations from psychiatry we will start the patient on quetiapine for psychosis. An EKG has been ordered to monitor QTC (<475). 100 mg at bedtime and 25 mg twice PRN a day has been started. Last QTC: 410 Melatonin 5 mg at bed time #Elevated blood pressures Most likely secondary to alcohol intoxication. Patient is also had increased risk of sustaining elevated blood pressure which can be seen during the Etoh withdrawal phase. We'll continue to monitor BP.Current pressure: 116/78 Coninue Clonidine 0.1 mg twice a day If pressure conitinue to be elevated, consider addition of an LEO inhibitor. #Transaminitis Most likely secondary to alcohol abuse. Patient is not endorsing any abdominal pain. Consider imaging if patient offeres compalints #Hyponatremia coupled with electrolyte derangements Often seen in cases of Alcohol abuse. Level on admission: 135 Moninor BEP and MG in AM electrolytes on labs this morning were within normal limits. #Tobacco abuse Nicotine 14 daily patch Smoking cessation conselling to be given. #History of depression Patient has a history of depression. Alcohol cessation can also precipitate depression. Wellbutrin has been discontinued owing to reducing the seizure threshold. Code: FC Problem List: 1. Bipolar affective disorder 2. Alcohol dependence with withdrawal 3. Alcoholic hepatitis 4. Alcohol intoxication 5. Alcohol dependence Pain Ratin Pain Location: nA Pain Goal: Remain pain free Pain Plan: NA Tomorrow's Labs & Rationales: MARGARET DOOLEY MD,LUIS FELIPE 08/23/16 1042: Attending MD Review Statement Attending Statement Attending Statement: examined this patient, discuss w/resident/PA/RAZOR SHARPENER, agreed w/resident/PA/RAZOR SHARPENER, reviewed EMR data (avail), discussed with nursing Attending Assessment/Plan: Patient seen and examined. Plan of care discussed with the medical team and the patient. Available lab work and radiology test reports were reviewed. Patient able template without any difficulty. He clearly does not have any tremors. His vital signs are stable and is afebrile. He denies any hallucinations or disorientation. His CIWA scores have been essentially 0 since last night. He is awake alert oriented. Chest exam is clear and there is no neuro deficit. Plan * Patient can be discharged home today on tapering doses of Ativan. 0.5 mg 3 times a day today and then 0.5 mg twice a day tomorrow and then 0.5 mg 1 pill in the morning on Thursday. * Patient has IOP appointment on Thursday * Patient plans to go to AA meetings
[2016-08-23 09:24] VITALS: BP 116/78
[2016-08-23] MEDS ORDERED: ATIVAN0.5 M1 PO (11:04)
[2016-08-23] MEDS ORDERED: VITAMIN B-1100 MG PO (11:17)
[2016-08-23] MEDS ORDERED: FOLIC ACID1 M1 PO (11:18)
[2016-08-23] MEDS ORDERED: VITAMIN B-121000 MC3 PO (11:18)
--- NOTE | 2016-08-23 15:52 | Discharge Summary ---
Visit Information Visit Dates Admission Date: 08/18/16 Discharge Date: 08/23/16 Hospital Course Course Attending Physician: KIMBERLY CARRIZALES MD Primary Care Physician: SONNY NICOLE MD Hospital Course: Mr Aparicio is a 40-year-old gentleman with a significant history of alcohol dependence and multiple detoxification attempts, who presented on with symptoms of alcohol intoxication (serum alcohol level of 370) and requesting assistance overcoming alcohol withdrawal. He was admitted onto our service and below is a summary of the care he received. #Alcohol Withdrawal The patient was admitted and started on CIWA protocol for acute alcoholic withdrawal. His Lorazepam dose was gradually tapered down based on his symptoms and CIWA scores. He was also given multi vitamins, thiamine and folic acid. He was initially hydrated via IV fluids. Once Mr Gillespie' PO intake improved, these were stopped. Throughout the admission, fall precautions were maintained. On day two of admission, Mr Aparicio did have an episode of Auditory and visual hallucinations. He was started on Haldol PO for halluciosis. On the day of discharge, the patient was sent home with instructions to taper down Lorazepam. He was given clear instructions to take one mg the day after discharge and 0.5 mg on the second day after discharge. #Bipolar Traits A consult with psychiatry did reveal that Mr Aparicio endorsed auditory hallucinations, racing thoughts and impulsive shopping as well as a long history of insomnia. While admitted, we began the patient on Quetiapine. This was eventually titrated up and dosed daily 100 mg at bed time. #Hypertension On the evening of day one of admission, the patient did have an elevated blood pressure in the range of 180/88. We continued the patient on Clonidine HCL 0.1 mg. His pressures were well controlled for the rest of his admission. #Transaminitis At the time of admission, the patient did have an elevated AST and ALT. Values were 408 and 410 respectively. #History of depression The patient has a history of depression. At the time of admission, the patient was on Bupropion 100mg. This was stopped after recommendations from psychiatry suggested that this medication may lower the seizure threshold. Allergies: Coded Allergies: NO KNOWN ALLERGIES (06/11/16) Disposition Summary Disposition Principal Diagnosis: Acute Alcohol Withdrawal Additional Diagnosis: Bipolar Traits Hypertension History of depression Discharge Disposition: home or self care Discharge Instructions General Discharge Information Code Status: Full Code Patient's Diet: Heart Healthy Patient's Activity: As Tolerated Follow-Up Instructions/Appts: Please follow up with you primary care physician in one week. Please inform your PCP about the medication changes we have made. Please follow up for your IOP appointment on 08/25/16, at 2PM, with Laura, at [address] [place] [address]. Please bring your photo ID and your insurance card. Medications at Discharge Discharge Medications: Stop taking the following medications: Bupropion HCl (Wellbutrin Sr) 100 MG TABLET.ER ORAL TWICE DAILY Continue taking these medications: Clonidine HCl (Clonidine HCl) 0.1 MG TABLET 1 Tablet ORAL TWICE DAILY Comments: LAST TAKEN 08/23 AT 10AM Start taking the following new medications: Cyanocobalamin (Vitamin B-12) 1,000 MCG TABLET 1,000 Microgram ORAL DAILY Qty = 30 No Refills Comments: LAST TAKEN 08/23 AT 10AM Folic Acid (Folic Acid) 1 MG TABLET 1 Milligram ORAL DAILY Qty = 30 No Refills Comments: LAST TAKEN 08/23 AT 10AM Thiamine HCl (Vitamin B-1) 100 MG TABLET 100 Milligram ORAL DAILY Qty = 30 No Refills Comments: LAST TAKEN 08/23 AT 10AM Quetiapine Fumarate (Quetiapine Fumarate) 100 MG TABLET 100 Milligram ORAL AT BEDTIME Qty = 30 No Refills Lorazepam (Ativan) 0.5 MG TABLET 1 Tablet ORAL SEE INSTRUCTIONS Qty = 4 No Refills Instructions: On 08/23: take one 0.5 mg tablet at Bed time. On 08/24: take on 0.5 mg tablet in the AM and one 0.5 mg tablet in the PM. On 08/25: take one 0.5 mg tablet in the AM. Comments: LAST TAKEN 08/23 AT 10AM Copies To: BONNIE CARRILLO,SONNY Heredia
== END 2016-08-23 11:55 | DRG 897 ==
LOC: ENRESERVDT → ENRESERVTM → ERH 15:38 → ENPENDDIS 23:46 → 2NA 23:46 → ERHI 23:46 → 2NA 08-19 01:30
PROVIDERS: Emergency Medicine; Student in an Organized Health Care Education/Training Program; ADMIT Student in an Organized Health Care Education/Training Program
DX: F10.239 Alcohol dependence with withdrawal, unspecified (principal); E87.0 Hyperosmolality and hypernatremia; K70.10 Alcoholic hepatitis without ascites; F31.9 Bipolar disorder, unspecified; R13.10 Dysphagia, unspecified; F17.200 Nicotine dependence, unspecified, uncomplicated; R74.0 Nonspecific elevation of levels of transaminase and lactic acid dehydrogenase [LDH]; E86.0 Dehydration; E16.2 Hypoglycemia, unspecified; Z68.39 Body mass index [BMI] 39.0-39.9, adult; E66.9 Obesity, unspecified; F90.9 Attention-deficit hyperactivity disorder, unspecified type; G47.411 Narcolepsy with cataplexy; I10 Essential (primary) hypertension
CPT/HCPCS: 2NASP; ERO; 36415; 80307; 82436; 93005; 93010; 96374; 99232; 99233; G0480; J1650; J3490; J7060

== ENCOUNTER 2016-09-17 16:32 | Inpatient (IN) | payer OTHER ==
[~2016-09-17] VITALS: Ht 188 cm; Wt 142.9 kg
[~2016-09-17 16:32] MED LIST changes: +ATIVAN0.5 M1 PO; +CLONIDINE HCL0.1 MG PO; +FOLIC ACID1 M1 PO; +QUETIAPINE FUM100 M1 PO; +VITAMIN B-1100 MG PO; +VITAMIN B-121000 MC3 PO; +WELLBUTRIN SR100 M2 PO
--- NOTE | 2016-09-17 16:49 | NUR ---
REQUESTING ADMISSION FOR DETOX (FOR ALCOHOL). STATES HE WAS SOBER FOR 6 MONTHS, HAS BEEN DRINKING DAILY FOR UNKNOWN LENGTH OF TIME. DRINKS VODKA 1/2 GALLON DAILY. DENIES OTHER DRUG USE. STATES HE HEARS DEMONS SCREAMING IN HIS EAR, TELLING HIM TO HURT PEOPLE AND OO WEIRD THINGS. DENIES SI OR HI. HASNT SLEPT IN 5 DAYS. STATES HE WAS ADMITTED HER 1 MONTH AGO. DENIES SI OR HI. 

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
[2016-09-17 17:51] LABS: ABSOLUTE BASOPHIL COUNT 0 /CUMM (0.0-0.2); ABSOLUTE EOSINOPHIL COUNT 0.1 /CUMM (0.0-0.7); ABSOLUTE GRANULOCYTE CT 4.1 /CUMM (1.4-6.5); ABSOLUTE LYMPH COUNT 2.5 /CUMM (1.2-3.4); ABSOLUTE MONOCYTE COUNT 0.4 /CUMM (0.10-0.60); BASOPHIL % 0.6 % (0.0-2.0); EOSINOPHIL % 1.3 % (0-5); GRANULOCYTE % 57.2 % (42.2-75.2); MEAN CORPUSCULAR HGB 31.4 PG (27.0-31.0); MEAN CORPUSCULAR VOLUME 92.3 FL (80.0-94.0); MEAN PLATELET VOLUME 8.4 FL (7.4-10.4); PLATELET COUNT 202 /CUMM (130-400); RBC DISTRIBUTION WIDTH 15.2 % (11.5-14.5); RED BLOOD CELL CT 5.64 /CUMM (4.70-6.10); WHITE BLOOD CELL COUNT 7.2 /CUMM (4.8-10.8)
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
[2016-09-17 18:29] VITALS: BP 141/74
--- NOTE | 2016-09-17 18:40 | NUR ---
AWARE OF NEEDED URINE
--- NOTE | 2016-09-17 18:52 | NUR ---
CHLOE MCFADDEN Nurse Note by: ANAND ALEGRE I agree with the FERRY HAND findings/evaluation of this patient's condition. Entered by: ANAND ALEGRE Date: 09/17/16 Time: 1851
--- NOTE | 2016-09-17 18:53 | NUR ---
URINE SENT PT STS HE HAS HAD DT'S IN THE PAST WHEN WTIHDRAWING
--- NOTE | 2016-09-17 19:30 | NUR ---
PT MEDICATED ORDERED
--- NOTE | 2016-09-17 19:35 | NUR ---
PT HAS BED ASSIGNMENT 204-2
--- NOTE | 2016-09-17 19:45 | NUR ---
DR SINGH AT BEDSIDE TO EVAL PT
[2016-09-17 20:10] VITALS: BP 159/92
--- NOTE | 2016-09-17 20:31 | NUR ---
JENNIFER NURSE RECEIVED REPORT
[2016-09-17 21:45] VITALS: BP 124/82
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
[2016-09-17 21:57] VITALS: BP 124/82
[2016-09-18] VITALS (13 sets, daily range): BP systolic 131–152; BP diastolic 69–110
--- NOTE | 2016-09-18 00:08 | Admission Certification ---
Admission Certification Certification Statement - As attending physician, I certify that at the time of - admission, based on clinical presentation, severity of - symptoms, need for further diagnostic testing and - therapeutic interventions, and risk of adverse outcomes - without in-hospital treatment, in my clinical assessment, - this patient requires an acute hospital stay for a minimum - of two nights or longer. I have also considered psychsocial - factors such as support system, advanced age, financial - issues, cognitive issues, and failed out-patient treatments, - past re-admission history, safety of patient, and lack of - compliance as applicable. Specific rationale supporting this admission is: Alcohol withdrawal.
--- NOTE | 2016-09-18 05:06 | NUR ---
NURSE NOTE:REPORT RECIEVED FROM LIANE IN ED. PT CAME TO FLOOR VIA, TRANSPORT AND SITTER. AAOX3, RA, CONT OBS. MONITOR ORDERED. ORIENTED TO ROOM, BED LOW. VSS. WILL CONTINUE TO MONITOR
--- NOTE | 2016-09-18 07:40 | PN- Housestaff ---
SHANTAL CARRILLO,OLY 09/18/16 0732: Subjective Follow-up For: Alcohol detox Depression Bipolar Complaints: see below Subjective: He feels tired today. He c/o palpitation, anxiety, abdominal pain, and nausea. He didn't vomit in the hospital. CIWA score max 17 within 24 hrs. serum alcohol 321. He quit smoking in August. Review of Systems Constitutional: Reports: diaphoresis, malaise. Denies: chills, fever. EENTM: Reports: no symptoms. Cardiovascular: Reports: palpitations. Denies: chest pain, orthopena, peripheral edema. Respiratory: Denies: cough, short of breath, sputum production, wheezing. Gastrointestinal: Reports: abdominal pain, nausea. Denies: vomiting. Genitourinary: Reports: no symptoms. Musculoskeletal: Reports: no symptoms. Skin: Reports: no symptoms. Neurological/Psychological: Reports: anxiety, tremors. Hematologic/Endocrine: Reports: no symptoms. Immunologic/Allergic: Reports: no symptoms. Objective Last 24 Hrs of Vital Signs/I&O Vital Signs Date Time Temp Pulse Resp B/P Pulse O2 O2 Flow FiO2 Ox Delivery Rate 09/18 0654 99.1 108 18 144/89 94 Room Air 09/18 0310 98.9 121 18 131/71 94 Room Air 09/18 0036 112 124/82 09/17 2157 112 124/82 09/17 2145 98.0 112 18 124/82 93 09/17 2009 98.6 104 20 159/92 09/18 2007 98.6 114 20 156/82 95 Room Air 09/17 1840 98 18 141/74 97 Room Air 09/17 1829 98.5 101 18 141/74 09/17 1650 99.2 132 18 168/87 99 Room Air Intake & Output 09/18 0800 09/18 0000 05 1600 Intake Total 480 760 Output Total Balance 480 760 Intake, IV 40 Intake, Oral 480 720 Patient 315 lb Weight Physical Exam General Appearance: Alert, Oriented X3, Cooperative, No Acute Distress Skin: No Significant Lesion HEENT: Atraumatic, PERRLA, EOMI, Mucous Membr. moist/pink Neck: Supple, No JVD, No LAD Lymphatic: Cervical nl Cardiovascular: Normal S1, Normal S2, tachycardia Lungs: Clear to Auscultation, Normal Air Movement Abdomen: Normal Bowel Sounds, Soft, LUQ/RUQ Td, no rTd Neurological: Normal Speech, Strength at 5/5 X4 Ext, Normal Tone, Sensation Intact, Cranial Nerves 3-12 NL Extremities: No Edema, Normal Pulses Vascular: Normal Pulses, Pulses Symmetrical Current Medications: Current Medications Sig/Teddy Start time Last Medication Dose Route Stop Time Status Admin Al Hydroxide/Mg 30 ML ONCE ONE 09/18 0145 DC 09/18 Hydroxide PO 09/18 0146 0211 Calcium Carbonate 500 MG DAILY 09/18 0045 AC 09/18 PO 0914 Chlordiazepoxide HCl 25 MG TID 09/17 2200 AC 09/18 PO 0916 Clonidine 0.1 MG BID 09/17 2227 AC 09/18 PO 0913 Cyanocobalamin/ 1 BAG DAILY 09/18 1000 AC Thiamine/Pyridoxine IV 09/18 1759 Sodium Chloride 1,000 ML Enoxaparin Sodium 40 MG DAILY 09/18 1000 AC SC Folic Acid 1 MG DAILY 09/18 1000 AC 09/18 PO 0914 Heparin Sodium 5,000 UNIT Q8 09/18 0020 DC 09/18 (Porcine) SC 0036 Lorazepam 2 MG FOUR TIMES A DAY 09/18 1000 CAN PO Lorazepam 1.5 MG Q6H 09/18 0000 CAN IV 09/18 1201 Lorazepam 0 Q1P PRN 09/17 2130 AC 09/18 IV 0621 Lorazepam 0 .STK-MED ONE 09/17 1926 DC .ROUTE Lorazepam 2 MG ONCE 09/17 191 DC IV 09/17 1916 Lorazepam 2 MG Q6 09/17 1907 DC 09/17 IV 1930 Multivitamins 1 TAB DAILY 09/18 1000 AC PO Nicotine 21 MG DAILY 09/18 1000 CAN TOP Omeprazole 40 MG DAILY AC 09/17 2315 AC 09/18 PO 0620 Quetiapine Fumarate 100 MG QPM 09/18 2200 AC PO Thiamine HCl 100 MG BID 09/18 0004 AC 09/18 PO 0913 Zolpidem Tartrate 5 MG AT BEDTIME PRN 09/18 0330 AC PO Orders CIWA Score (last 24 hrs): 03-8-7-17-0-0-17 Lines/Diet/Fluids Lines: peripheral lines Assessment/Plan Assessment: 40 yo morbidly obese male, smoker, with h/o alcohol dependence, previous alcohol withdrawal seizures (Mar 2016 in [place]), anxiety, HTN, narcolepsy (was on adderall), recently admitted to [place] (Jul 2016) for alcohol detox but left AMA, then readmitted in August 2016 for same, resumed drinking soon after discharge, and is now here requesting alcohol detox. He did not follow up with [facility] and did not attend AA meetings as suggested to him the last time. He reports auditory and visual hallucinations. He thinks there is a demon in his house which his and friend have also noticed. Denies SI or HI. C/o nausea, vomiting and heartburn. Poor appetite. Vitals are stable except for tachycardia. Labs: Na 146, bicarb 21, AG 21, glucose 117, T. Bili 1.4, AST 225, ALT 235, lipase/ amylase normal, Utox neg, S. Alcohol 321. EKG: Sinus tachycardia, Qtc 435. 1. Alcohol withdrawal: Patient restarted drinking after 1 week of last discharge (08/23/16), 1/2 gallon of Vodka per day. He drinks to cope with stress. He needs psy/social support to better control stress. He couldn't follow up with [facility] as he started working. His appointment with PCP was scheduled in September. Continue on PO librium 25 mg TID and IV CIWA. Max CIWA 17, IV ativan per CIWA -> IV 8mg given in 24 hr. Seizure precautions, banana bag x 1 time. Will f/u Social work and Psych consult. Patient denies hallucinations. Last EKG, sinus tachycardia rate 108, QTc 435. 2. Bipolar trait/depression: patient began Seroquel in the last admission and continue 100 mg at bedtime. 3. Alcohol induced gastritis: c/w IV hydration, po PPI, IV zofran q6prn 4. Transaminitis in the setting of alcohol use. No fever/leukocytosis. Hepatitis panel was negative. LFTs are trending down. Total bili unchanged. 5. Dehydration, hypernatremia with alcohol induced acidosis. continue IVF hydration. 6. Hypertension. Continue clonidine 0.1mg bid. 7. Insomnia. Ambien PRN. Pt quit smoking in August. DVT ppx Lovenox. Full code. Problem List: 1. Alcohol withdrawal syndrome 2. Bipolar affective disorder Pain Ratin Pain Location: abdominal pain Pain Goal: Pain 4 or less Pain Plan: hold tyrenol due to transaminitis IV morphine prn Tomorrow's Labs & Rationales: No labs tomorrow DVT/Prophylaxis: pharmacological Discharge Plan Stable for Discharge? No KIMBERLY CARRIZALES MD 09/18/16 1104: Attending MD Review Statement Attending Statement Attending MD Statement: examined this patient, discuss w/resident/PA/OIL DISTRIBUTOR TENDER, agreed w/resident/PA/OIL DISTRIBUTOR TENDER, reviewed EMR data (avail), discussed with nursing, amended to note Attending Assessment/Plan: Patient seen and examined, and said that he is just feeling sick. Denies any specific abdominal pain. Patient is admitted with alcohol intoxication needing detox. Vital Signs Date Time Temp Pulse Resp B/P Pulse O2 O2 Flow FiO2 Ox Delivery Rate 09/18 1024 98.3 98 20 152/87 93 Room Air 09/18 1001 Room Air 09/18 1000 99.1 108 18 144/89 09/18 0913 108 144/89 09/18 0800 991.0 108 18 144/89 09/18 0654 99.1 108 18 144/89 94 Room Air 09/18 0310 98.9 121 18 131/71 94 Room Air 09/18 0036 112 124/82 09/17 2157 112 124/82 04 2145 98.0 112 18 124/82 93 09/17 2009 98.6 104 20 159/92 09/18 2007 98.6 114 20 156/82 95 Room Air 09/17 1840 98 18 141/74 97 Room Air 09/17 1829 98.5 101 18 141/74 04/ 1650 99.2 132 18 168/87 99 Room Air on exam; aox3, nad. cv; s1,s2, rrr resp; clear abd; soft, nt, bs+ ext; no edema. Laboratory Tests 09/18 09/17 09/17 0650 1850 1726 Chemistry Sodium (137 - 145 mmol/L) 135 L Potassium (3.5 - 5.1 mmol/L) 4.4 Chloride (98 - 107 mmol/L) 102 Carbon Dioxide (22 - 30 mmol/L) 25 Anion Gap (5 - 16) 7 BUN (9 - 20 mg/dL) 17 Creatinine (0.7 - 1.2 mg/dL) 1.0 Estimated GFR (>60 ml/min) > 60 BUN/Creatinine Ratio (7 - 25 %) 17.0 Magnesium (1.6 - 2.3 mg/dL) 2.2 Total Bilirubin (0.2 - 1.3 mg/dL) 1.4 H Direct Bilirubin (< 0.4 mg/dL) 0.3 AST (17 - 59 U/L) 142 H ALT (21 - 72 U/L) 190 H Alkaline Phosphatase (< 127 U/L) 79 Total Protein (6.3 - 8.2 g/dL) 7.1 Albumin (3.5 - 5.0 g/dL) 4.2 Toxicology Urine Opiates Screen (>2000 NG/ML) < 100.00 Methadone Screen (>300 NG/ML) < 40 Barbiturate Screen (>200 NG/ML) < 60 Ur Phencyclidine Scrn (>25 NG/ML) < 6.00 Amphetamines Screen (>1000 NG/ML) < 100 U Benzodiazepines Scrn (>200 NG/ML) < 85 Urine Cocaine Screen (>300 NG/ML) < 50 Urine Cannabis Screen (>50 NG/ML) < 5.00 09/17 1726 Chemistry Sodium (137 - 145 mmol/L) 146 H Potassium (3.5 - 5.1 mmol/L) 4.7 Chloride (98 - 107 mmol/L) 104 Carbon Dioxide (22 - 30 mmol/L) 21 L Anion Gap (5 - 16) 21 H BUN (9 - 20 mg/dL) 14 Creatinine (0.7 - 1.2 mg/dL) 1.1 Estimated GFR (>60 ml/min) > 60 BUN/Creatinine Ratio (7 - 25 %) 12.7 Glucose (65 - 99 mg/dL) 117 H Calcium (8.4 - 10.2 mg/dL) 9.9 Total Bilirubin (0.2 - 1.3 mg/dL) 1.4 H AST (17 - 59 U/L) 225 H ALT (21 - 72 U/L) 235 H Alkaline Phosphatase (< 127 U/L) 85 Total Protein (6.3 - 8.2 g/dL) 8.4 H Albumin (3.5 - 5.0 g/dL) 4.9 Globulin (1.9 - 4.2 gm/dL) 3.5 Albumin/Globulin Ratio (1.1 - 2.2 %) 1.4 Amylase (30 - 110 U/L) 63 Lipase (23 - 300 U/L) 252 Vitamin B12 (239 - 931 pg/mL) 752 Folate (2.76 - 20.0 ng/mL) 10.2 TSH (0.270 - 4.200 uIU/mL) 1.320 Hematology CBC w Diff NO MAN DIFF REQ WBC (4.8 - 10.8 /CUMM) 7.2 RBC (4.70 - 6.10 /CUMM) 5.64 Hgb (14.0 - 18.0 G/DL) 17.7 Hct (42 - 52 %) 52.0 MCV (80.0 - 94.0 FL) 92.3 MCH (27.0 - 31.0 PG) 31.4 H RDW (11.5 - 14.5 %) 15.2 H Plt Count (130 - 400 /CUMM) 202 MPV (7.4 - 10.4 FL) 8.4 Gran % (42.2 - 75.2 %) 57.2 Lymphocytes % (20.5 - 51.1 %) 35.5 Monocytes % (1.7 - 9.3 %) 5.4 Eosinophils % (0 - 5 %) 1.3 Basophils % (0.0 - 2.0 %) 0.6 Absolute Granulocytes (1.4 - 6.5 /CUMM) 4.1 Absolute Lymphocytes (1.2 - 3.4 /CUMM) 2.5 Absolute Monocytes (0.10 - 0.60 /CUMM) 0.4 Absolute Eosinophils (0.0 - 0.7 /CUMM) 0.1 Absolute Basophils (0.0 - 0.2 /CUMM) 0 PUBS MCHC (33.0 - 37.0 G/DL) 34.0 Toxicology Serum Alcohol (<10 MG/DL) 321.0 A/P; 40-year-old male with past medical history significant for anxiety, alcohol use, hypertension, narcolepsy who has been admitted in the past with alcohol intoxication and this time also admitted with acute alcohol intoxication needing detox. Patient on Librium scheduled as well as when necessary Ativan. Seen by psych Keith Li and his Librium was discontinued and he was started on alcohol detox protocol with scheduled as well as when necessary Ativan. He is already on multivitamin, folate and thiamine. He has slightly high blood pressure and heart rate which is likely related to withdrawal. We'll keep an eye on his blood pressure. Social work evaluation will be requested. Psych is recommending keeping the sitter on for patient's safety. DVT px; Lovenox
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
--- NOTE | 2016-09-18 15:08 | NUR ---
Referral received this am via electronic us customs and border officer. This patient is a 40 year old man, admitted to the hospital last evening for a voluntary ETOH detox. This is patient's third admission to the hospital in as many months; he has signed out AMA once and opted not to follow up with aftercare as receommended by chemical technician. The patient was placed on the CIWA for observation of withdrawal symptoms and has been receiving ativan. He has been symptomatic, especially on the overnight when he had a constellation of symptoms including tremors, anxiety, sweating and headache. He has reported to psychiatry today that he has a new job with a [employer]; works long hours but says he will make time to get to [facility]. Collaborate with psychiatry to assist with appropriate aftercare plans.
[2016-09-19] VITALS: BP 140/80
[2016-09-19 04:00] VITALS: BP 130/76
[2016-09-19 06:00] VITALS: BP 130/78
[2016-09-19 06:46] VITALS: BP 130/78
--- NOTE | 2016-09-19 07:45 | PN- Housestaff ---
See Addendum Subjective Follow-up For: Alcohol withdrawal Bipolar disorder Hypertension Subjective: Patient was seen and examined at bedside. He slept well overnight feeling much better. He hax anxiety, diaphoresis intermittently. His CIWA score has been 0-2 not requiring IV ativan overnight. He denies any chest pain/shortness of breath. Review of Systems Constitutional: Reports: diaphoresis. Denies: fever, weakness. EENTM: Reports: no symptoms. Cardiovascular: Denies: chest pain, orthopena, palpitations. Respiratory: Reports: no symptoms. Gastrointestinal: Reports: no symptoms. Genitourinary: Reports: no symptoms. Musculoskeletal: Reports: no symptoms. Skin: Reports: no symptoms. Neurological/Psychological: Reports: anxiety. Hematologic/Endocrine: Reports: no symptoms. Immunologic/Allergic: Reports: no symptoms. Objective Last 24 Hrs of Vital Signs/I&O Vital Signs Date Time Temp Pulse Resp B/P Pulse O2 O2 Flow FiO2 Ox Delivery Rate / 0646 98.2 71 20 130/78 93 Room Air / 0600 98.0 71 20 130/78 04/07 0400 78 130/76 04/07 0000 98.0 89 19 140/80 04/06 2219 140/90 04/06 2200 98.3 92 18 140/90 04/06 2142 98.3 92 19 142/110 93 04/06 2000 98.7 104 20 135/69 04/06 1800 98.7 104 20 135/69 04/06 1600 98.7 104 20 135/69 04/06 1418 98.7 104 20 135/69 98 Room Air 04/06 1400 98.7 104 20 135/69 04/06 1200 99.1 108 18 144/89 04/06 1024 98.3 98 20 152/87 93 Room Air 04/06 1001 Room Air 04/06 1000 99.1 108 18 144/89 04/06 0913 108 144/89 04/06 0800 991.0 108 18 144/89 Intake & Output /07 0800 04/07 0000 04/06 1600 Intake Total 120 450 970 Output Total 400 Balance -280 450 970 Intake, IV 250 Intake, Oral 120 450 720 Number 0 Bowel Movements Output, Urine 400 Physical Exam General Appearance: Alert, Oriented X3, Cooperative, No Acute Distress Skin: No Significant Lesion HEENT: Atraumatic, PERRLA, EOMI, Mucous Membr. moist/pink Neck: Supple, No JVD, No LAD Lymphatic: Cervical nl Cardiovascular: Regular Rate, Normal S1, Normal S2, No Murmurs Lungs: Clear to Auscultation, Normal Air Movement Abdomen: Normal Bowel Sounds, Soft, No Tenderness Neurological: Normal Speech, Strength at 5/5 X4 Ext, Cranial Nerves 3-12 NL, fine tremors Extremities: No Edema, Normal Pulses Vascular: Normal Pulses, Pulses Symmetrical Current Medications: Current Medications Sig/Teddy Start time Last Medication Dose Route Stop Time Status Admin Calcium Carbonate 500 MG DAILY 09/18 0045 AC 09/18 PO 0914 Chlordiazepoxide HCl 25 MG TID 09/17 2200 DC 09/18 PO 0916 Clonidine 0.1 MG BID 09/17 2227 AC 09/18 PO 2219 Cyanocobalamin/ 1 BAG DAILY 09/18 1000 DC 09/18 Thiamine/Pyridoxine IV 09/18 1759 1135 Sodium Chloride 1,000 ML Enoxaparin Sodium 40 MG DAILY 09/18 1000 AC 09/18 SC 1135 Folic Acid 1 MG DAILY 09/18 1000 AC 09/18 PO 0914 Haloperidol 2 MG .STK-MED ONE 09/18 1628 DC PO 09/18 1629 Haloperidol 2 MG BID PRN 09/18 1030 AC 09/18 PO 1631 Lorazepam 0.5 MG ONCE 09/23 0000 AC PO 09/23 0001 Lorazepam 0.5 MG Q6H 09/22 0000 AC PO 09/22 1801 Lorazepam 0.5 MG ONCE ONE 09/21 1800 AC PO 09/21 1801 Lorazepam 1 MG Q6H 09/21 0000 AC PO 09/21 1201 Lorazepam 1.5 MG Q12H 09/20 0600 AC PO 09/20 1801 Lorazepam 1 MG Q12H 09/20 0000 AC PO 09/20 1201 Lorazepam 1.5 MG Q6 09/19 0600 AC 09/19 PO 09/19 1801 0614 Lorazepam 2 MG Q6 09/18 1200 DC 09/19 PO 09/19 0001 0045 Lorazepam 2 MG Q2P PRN 09/18 1030 AC IV Lorazepam 1 MG Q2P PRN 09/18 1030 AC IV Lorazepam 0 Q1P PRN 09/17 2130 DC 09/18 IV 0621 Morphine Sulfate 2 MG Q8P PRN 09/18 1030 AC IV Multivitamins 1 TAB DAILY 09/18 1000 AC 09/18 PO 1140 Nicotine 21 MG DAILY 09/18 1000 CAN TOP Omeprazole 40 MG DAILY AC 09/17 2315 AC 09/19 PO 0614 Ondansetron HCl 4 MG Q6P PRN 09/18 1015 AC IV Quetiapine Fumarate 100 MG QPM 09/18 2200 CAN PO Thiamine HCl 100 MG BID 09/18 0004 AC 09/18 PO 2220 Trazodone HCl 50 MG ONCE ONE 09/19 0130 DC 09/19 PO 09/19 0131 0127 Trazodone HCl 50 MG AT BEDTIME 09/18 2200 AC 09/18 PO 2219 Zolpidem Tartrate 5 MG AT BEDTIME PRN 09/18 0330 AC PO Orders CIWA Score (last 24 hrs): 1-3-6-0-2-0-0 Lines/Diet/Fluids Lines: peripheral lines Assessment/Plan Assessment: 40 yo morbidly obese male, smoker, with h/o alcohol dependence, previous alcohol withdrawal seizures (Mar 2016 in [place]), anxiety, HTN, narcolepsy (was on adderall), recently admitted to [facility] (Jul 2016) for alcohol detox but left AMA, then readmitted in August 2016 for same, resumed drinking soon after discharge, and is now here requesting alcohol detox. He did not follow up with IOP and did not attend AA meetings as suggested to him the last time. He reports auditory and visual hallucinations. He thinks there is a demon in his house which his and friend have also noticed. Denies SI or HI. C/o nausea, vomiting and heartburn. Poor appetite. Vitals are stable except for tachycardia. Labs: Na 146, bicarb 21, AG 21, glucose 117, T. Bili 1.4, AST 225, ALT 235, lipase/ amylase normal, Utox neg, S. Alcohol 321. EKG: Sinus tachycardia, Qtc 435. 1. Alcohol withdrawal: Psychiatry consult is appreciated. PO librium 25 mg TID was discontinued yesterday per psy. Pt got po 2mg q6 3 doses (6mg) and it will decreased to 1mg q6 today. IV ativan per CIWA > 10. CIWA has been stable over night (max 2), HR decreased to 70s. Continue ativan taper, thiamine, folate, MV. Seizure precautions. banana bag x 1 time. Will follow Social work and Psych consult. 2. Bipolar trait/depression: Seroquel 100 mg at bedtime was discontinued. He is on haldol 2mg bid prn and trazodone 50mg qHS. He denies any hallucinations. Last EKG, sinus tachycardia rate 108, QTc 435. 3. Alcohol induced gastritis: po PPI, IV zofran q6prn 4. Transaminitis in the setting of alcohol use. No fever/leukocytosis. Hepatitis panel was negative. LFTs are trending down. Total bili unchanged. 5. Hypertension. Continue clonidine 0.1mg bid. 6. Narcolepsy/insomnia: Pt is doing well wiith Trazodone 50mg at HS & Ambien PRN. Patient needs to follow up with [facility] after discharge for better sleep/control of narcolepsy. Pt quit smoking in August. DVT ppx Lovenox. Full code. Problem List: 1. Alcohol withdrawal syndrome 2. Bipolar affective disorder Pain Ratin Pain Location: NA Pain Goal: Pain 4 or less Pain Plan: IV morphine prn Tomorrow's Labs & Rationales: NA DVT/Prophylaxis: pharmacological Consulting Request: Consulting Specialty: Psychiatry Consulting Physician: Samir Li Reason for Consult: Alcohol withdrawal Discharge Plan Stable for Discharge? No
--- NOTE | 2016-09-19 08:38 | NUR ---
NURSING NOTE: CONT OBV MONITOR DCD PER MD ORDER. PT DENIES SI OR HI AT THIS TIME. AWAKE, A/OX3, STEADY GAIT NOTED CONT TO MONITOR
[2016-09-19 14:17] VITALS: BP 132/70
--- NOTE | 2016-09-19 14:31 | NUR ---
nursing note: pts cell phone, tablet and chager given back, pt signed, slip in chart.
--- NOTE | 2016-09-19 14:56 | NUR ---
Following patients progress as it relates to his detox. By way of observation, patient looks calm; no tremors and is calm. When questioned about "how are things going" he says "well, you know. I'm drinking again". When I asked Lee if I could secure an intake at the [facility] for him, he declined, instead saying that he "can't do it with my job". 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 He confirms what he has said to psychiatry about moving into an apartment in the house as his is still drinking. Lee also says that he will return to . I have instructed him to try to make an effort to go at least daily if he was not going to attend [facility]. He verbalizes understanding and says he will make contact with his sponsor. Please call if other social work needs arise.
--- NOTE | 2016-09-19 19:18 | NUR ---
1845: PATIENT WANTS TO GO LEAVE BUILDING TO "JUST SMOKE A CIGARETTE". TOLD PATIENT THAT LEAVING THE BUILDING TO SMOKE IS NOT ALLOWED. PATIENT WANTS TO LEAVE AMA. PHARMACOLOGIST IRIS AWARE AND IS SPEAKING WITH PATIENT.
--- NOTE | 2016-09-20 16:03 | Event Note ---
Event Note Event Note: Patient is here for alcohol detox, patient requested to leave AMA. After a long discussion with the patient as a try to explain for him the need to stay and the risk of leaving AMA he was still refusing to stay. Patient was alert and oriented X3. It was explained to the patient by me personally Dr. Nevarez that leaving AMA while still on the Ativan taper Put Him in the Risk of Withdrawing from Alcohol or from the Ativan Itself. This can be as bad as seizure with permanent brain damage, unstable vital signs, vomiting with the risk of aspiration pneumonia, and risk of other withdrawal symptom. This discussion was conducted in the presence of and 2 of the patient stepsisters. Patient replied that he fully understand the consequences, and he would like to take the risk. AMA document was signed by the patient and me, with being the witness. Patient was told to come back to [facility] if he felt that he is withdrawing or his symptom got worse.
--- NOTE | 2016-09-27 20:23 | Discharge Summary ---
Visit Information Visit Dates Admission Date: 09/17/16 Discharge Date: 09/19/16 Hospital Course Course Attending Physician: KIMBERLY CARRIZALES MD Primary Care Physician: BONNIE CARRILLO,SONNY Heredia Consulting Request: Consulting Specialty: Psychiatry Consulting Physician: Samir Li Reason for Consult: Alcohol withdrawal Hospital Course: 40 yo gentle man with pmh of morbid obesity, h/o alcohol dependence, previous alcohol withdrawal seizures (Mar 2016 in [place]), anxiety, HTN, narcolepsy ( was on adderall), a current smoker, who recently admitted to [place] (Jul 2016) for alcohol detox but left AMA, then readmitted in August 2016 for same alcohol detox, resumed drinking soon after discharge came to [place] ED requesting alcohol detox. He did not follow up with IOP and did not attend AA meetings as suggested to him the last time. He reported auditory and visual hallucinations. He thought there was a demon in his house which his and friend have also noticed. He denied suicidal or homocidal idea. He c/o nausea, vomiting, heartburn and decreased appetite. He denied any blood in vomitus. Also he denied chest pain, palpitation, difficulty breathing, or abdominal pain. Initial vital: 99.2F KY 132 RR 18 BP 168/87 Sat 99% on RA, On exam, NAD, Alert, Oriented 3. HEENT: PERRLA, EOMI, normal pharynx. Neck: Supple, no JVD, no carotid bruit. CV: RRR, no murmur. Lungs: CTA BL. Abdomen: Normal bowel sounds, soft, NT, ND. Extremities: No edema, normal pulses. Neurologic: Cranial nerves III-12 intact. Normal range of motion, normal sensation, normal reflexes. Labs: Na 146, bicarb 21, AG 21, glucose 117, T. Bili 1.4, AST 225, ALT 235, lipase/ amylase normal, Utox neg, S. Alcohol 321. EKG: Sinus tachycardia, Qtc 435. Patient was admitted to general medicine floor for following problem lists; 1. Alcohol withdrawal: Patient was given PO librium 25 mg TID initially, but it was discontinued per psychiatric recommendation. He was on po ativan taper 2mg q6, and it was scheduled to decrease to 1mg q6. IV ativan was given per CIWA > 10. He was given oral thiamine, folate, MV. The patient was on seizure precaution, and no seizure was observed in the hospital. Social work consult and Psych consult were appreciated. However, on 09/19, patient was agitated and requested to leave the hospital if he couldn't smoke in the hospital. He understood the risk of withdrawing from alcohol or from the ativan. 2. Bipolar trait/depression: Seroquel 100 mg at bedtime was discontinued per psy recommendation. He was given haldol 2mg bid prn and trazodone 50mg qHS. He denied any hallucinations. QTc was monitored. 3. Alcohol induced gastritis: The patient was given po PPI and IV zofran q6prn for symptom management. 4. Transaminitis in the setting of alcohol use: He didn't have any fever/ leukocytosis. Hepatitis panel was negative. LFTs were trending down and Total bili was unchanged. Follow up LFT as outpt. 5. Hypertension: He continued on clonidine 0.1mg bid. 6. Narcolepsy/insomnia: The patient was doing well with Trazodone 50mg at HS & Ambien PRN. He needs to follow up with [facility] after discharge for better sleep/control of narcolepsy. DVT ppx Lovenox. Full code. Before finishing ativan taper, patient requested to leave AMA and was advised to come back to hospital when he needs medical help. Allergies: Coded Allergies: NO KNOWN ALLERGIES (06/11/16) Disposition Summary Disposition Principal Diagnosis: Alchol withdrawal Alcoholic gastritis Alcohol related transaminitis Additional Diagnosis: Bipolar disorder/depression HTN Narcolepsy Insominia Discharge Disposition: left against medical adv Discharge Instructions General Discharge Information Code Status: Full Code Patient's Diet: Heart healthy diet Patient's Activity: Full activity Follow-Up Instructions/Appts: Please follow up with a primary doctor within 1 week after discharge Please follow up with [facility]/AA meetings Please come back to [facility] with alcohol withdrawal symptoms Copies To: ALL CARRILLO,KIMBERLY; BONNIE CARRILLO,SONNY Heredia
== END 2016-09-19 19:19 | disposition left against medical advice (07) | DRG 894 ==
LOC: ENRESERVTM → ENRESERVDT → ERH 16:32 → ERHI 19:11 → 2NB 19:11
PROVIDERS: Physician Assistant; ADMIT Student in an Organized Health Care Education/Training Program
DX: F10.229 Alcohol dependence with intoxication, unspecified (principal); I10 Essential (primary) hypertension; R44.0 Auditory hallucinations; F31.9 Bipolar disorder, unspecified; F17.200 Nicotine dependence, unspecified, uncomplicated; F41.9 Anxiety disorder, unspecified; G47.419 Narcolepsy without cataplexy; R44.1 Visual hallucinations; K29.20 Alcoholic gastritis without bleeding; R74.0 Nonspecific elevation of levels of transaminase and lactic acid dehydrogenase [LDH]
CPT/HCPCS: 2NBSP; 80307; 82436; 93005; 93010; 99232; G0480; J1644; J1650; J3490

== ENCOUNTER 2016-09-20 21:58 | Emergency (ER) | payer OTHER ==
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
[2016-09-20 23:24] LABS: ABSOLUTE BASOPHIL COUNT 0.1 /CUMM (0.0-0.2); ABSOLUTE EOSINOPHIL COUNT 0.2 /CUMM (0.0-0.7); ABSOLUTE GRANULOCYTE CT 3.2 /CUMM (1.4-6.5); ABSOLUTE LYMPH COUNT 2.6 /CUMM (1.2-3.4); ABSOLUTE MONOCYTE COUNT 0.6 /CUMM (0.10-0.60); BASOPHIL % 0.8 % (0.0-2.0); EOSINOPHIL % 3.2 % (0-5); GRANULOCYTE % 48.3 % (42.2-75.2); HEMATOCRIT 50.7 % (42-52); MEAN CORPUSCULAR HGB 31.6 PG (27.0-31.0); MEAN CORPUSCULAR HGB CONC 33.9 G/DL (33.0-37.0); MEAN PLATELET VOLUME 8.6 FL (7.4-10.4); PLATELET COUNT 132 /CUMM (130-400); RBC DISTRIBUTION WIDTH 15.2 % (11.5-14.5); RED BLOOD CELL CT 5.45 /CUMM (4.70-6.10); WHITE BLOOD CELL COUNT 6.7 /CUMM (4.8-10.8)
[2016-09-21 06:31] VITALS: BP 100/51
== END 2016-09-21 08:59 ==
LOC: ERH 21:58
PROVIDERS: Emergency Medicine
DX: F10.121 Alcohol abuse with intoxication delirium (principal); R18.8 Other ascites
CPT/HCPCS: 80307; G0480

== ENCOUNTER 2017-10-15 21:30 | Emergency (ER) | payer OTHER ==
[~2017-10-15] VITALS: Ht 182.9 cm; Wt 127.0 kg
[2017-10-15 22:01] LABS: ABSOLUTE BASOPHIL COUNT 0 /CUMM (0.0-0.2); ABSOLUTE EOSINOPHIL COUNT 0.1 /CUMM (0.0-0.7); ABSOLUTE GRANULOCYTE CT 3.3 /CUMM (1.4-6.5); ABSOLUTE LYMPH COUNT 1.9 /CUMM (1.2-3.4); ABSOLUTE MONOCYTE COUNT 0.4 /CUMM (0.10-0.60); BASOPHIL % 0.9 % (0.0-2.0); EOSINOPHIL % 2.5 % (0-5); GRANULOCYTE % 57.3 % (42.2-75.2); HEMATOCRIT 48.4 % (42-52); MEAN CORPUSCULAR HGB 31.5 PG (27.0-31.0); MEAN CORPUSCULAR HGB CONC 33.8 G/DL (33.0-37.0); MEAN CORPUSCULAR VOLUME 93.2 FL (80.0-94.0); MEAN PLATELET VOLUME 8.2 FL (7.4-10.4); PLATELET COUNT 173 /CUMM (130-400); RBC DISTRIBUTION WIDTH 13.9 % (11.5-14.5); WHITE BLOOD CELL COUNT 5.7 /CUMM (4.8-10.8)
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
[2017-10-16 06:43] VITALS: BP 132/84
== END 2017-10-16 06:43 ==
LOC: ERH 21:30
PROVIDERS: Emergency Medicine
DX: F10.10 Alcohol abuse, uncomplicated (principal); K70.10 Alcoholic hepatitis without ascites; Z04.3 Encounter for examination and observation following other accident; F11.20 Opioid dependence, uncomplicated
CPT/HCPCS: G0480; J1200; J1630